=== PATIENT | female | born 1965 | race Caucasian/White ===

== ENCOUNTER 2024-01-29 19:18 | Inpatient (IN) ==
[2024-01-29] MEDS: SODIUM CHLORIDE 0.9% 1,000 ML IV ONE (19:52)
[2024-01-29 20:11] LABS: Basophils # (auto) 0.04 K/uL (0.00-0.20); Basophils % (auto) 0.3 %; Eosinophils # (auto) 0.04 K/uL (0.00-0.50); Eosinophils % (auto) 0.3 %; Hematocrit (blood only) 38.4 % (37.0-47.0); Hemoglobin 11.8 g/dl (12.0-16.0); Immature Granulocytes # (auto) 0.05 K/uL (0.01-0.20); Immature Granulocytes % (auto) 0.4 %; Lymphocytes # (auto) 2.09 K/uL (1.20-3.40); Lymphocytes % (auto) 15.5 %; Mean Corpuscular Hemoglobin 21.7 pg (25.0-34.0); Mean Corpuscular Hgb Conc 30.7 g/dL (32.0-36.0); Mean Corpuscular Volume 70.7 fL (80.0-100.0); Monocytes # (auto) 1.13 K/uL (0.11-0.59); Monocytes % (auto) 8.4 %; Neutrophils % (auto) 75.1 %; Platelet Count 589 K/uL (130-400); RDW Coefficient of Variation 15.3 % (11.5-14.5); Red Blood Count 5.43 M/uL (4.20-5.40); White Blood Count 13.45 K/ul (4.8-10.8)
[2024-01-29 20:16] LABS: Appearance Urine Turbid (Clear); Bacteria Urine Automated None Seen (None Seen); Bilirubin Urine 1+ (Negative); Blood Urine Negative (Negative); Calcium Oxalate Crystals Urine Present (None Prsent); Color Urine Dark Yellow; Glucose Urine UA Negative (Negative); Ketones Urine 2+ (Negative); Leukocyte Esterase Urine 1+ (Negative); Nitrite Urine Negative (Negative); Protein Urine 2+ (Negative); RBC Urine Automated >20 /hpf (0-2); Specific Gravity Urine 1.038 (1.000-1.030); Urobilinogen Urine Negative (Negative); WBC Urine Automated 0-5 /hpf (0-5)
[2024-01-29 20:23] LABS: Pregnancy Test, Serum Negative (Negative)
[2024-01-29 20:27] LABS: Albumin Level 4.1 gm/dl (3.4-5.0); Bilirubin,Total 0.5 mg/dl (0.2-1.0); Calcium 9.5 mg/dl (8.6-10.3); Creatinine Clr Calc Pharmacy 95.4 ml/min; Est GFR (African American) 118.4 ml/min; Est GFR (Non-African American) 102.2 ml/min; Potassium 3.1 mmol/L (3.5-5.1); Total Protein 8.1 gm/dl (6.0-8.3)
[2024-01-29 20:34] LABS: Magnesium 1.9 mg/dl (1.7-2.4)
--- NOTE | 2024-01-29 20:36 | Emergency Department Note ---
Impression & Plan Mass of uterus, Abdominal pain, Bilateral pleural effusion, Leukocytosis, Acute hypokalemia ED Provider Note HISTORY OF PRESENT ILLNESS: Patient is a 58-year-old female presenting with right lower quadrant abdominal pain. Patient reports that she has been having pain in the right lower quadrant that radiates into her right low back on and off for the last few weeks. States the pain occurs almost daily and occurs multiple times a day. She went to urgent care today because she "thought I should get it checked out finally." At urgent care she had a chest x-ray because "the lady heard something on my lung exam," and the chest x-ray showed "fluid on my lungs." She denies any history of abdominal surgeries. Denies any diarrhea. She reports nausea and a few episodes of vomiting intermittently over the last few weeks. She denies any DVT or PE history. Denies any history of cardiac stents. Denies any recent fevers. Denies any dysuria or hematuria. ROS: as above PHYSICAL EXAM: Constitutional: Patient appears in no acute distress. HENT: Head: Normocephalic and atraumatic. Eyes: EOMI, PERRL Mouth/Throat: Mucous membranes moist. Neck: Trachea midline. Neck supple. Cardiovascular: Tachycardic with regular rhythm. No murmurs, rubs or gallops. Intact distal pulses. Pulmonary/Chest: Conversationally dyspneic. Decreased breath sounds in the right lower lung. Abdominal: Abdomen soft, no rebound or guarding. RLQ TTP Musculoskeletal: No edema, tenderness or deformity noted. Skin: Warm and dry. No rash, erythema, pallor or cyanosis Psychiatric: Appropriate mood and affect for situation. Neurological: Alert and keenly responsive. CN II-XII grossly intact, moving all extremities equally and fully. MDM: - Vitals signs showed tachycardia - History obtained via patient. History as above. - Chronic conditions affecting care: None - Differential diagnoses include, but are not limited to: appendicitis; cholecystitis; small bowel obstruction; pneumonia - Order placed for continuous cardiac monitoring. At this time, monitor showed rate of 115 bpm with normal sinus rhythm, per my interpretation. - External medical records reviewed. - EKG interpreted by myself showed normal sinus rhythm. Rate tachycardic at 125 bpm. QT 312. No acute ischemic changes - Laboratory workup interpreted by myself showed leukocytosis (WBC 13.45); hypokalemia (K 3.1); normal lactate; elevated anion gap (14); normal troponin; elevated procalcitonin (8.63); negative hCG; normal lipase - UA negative for infection - CXR showed large right pleural effusion, per my interpretation. - CTA chest negative for PE, but noted to have a large right and moderate left pleural effusions. - CT abdomen/pelvis with IV contrast showed a heterogeneous 21.9 x 16.6 x 18.3 cm mass in the lower abdomen that extends from the uterus consistent with malignancy. Noted to have mild free fluid in the abdomen and pelvis. Noted to have nodularity of the omentum concerning for metastatic disease. - Patient given 1L NS in ER. - Discussed results with patient. She is persistently tachycardic in the emergency department and still conversationally dyspneic. Do think she would benefit from having the pleural effusions drained and cytology sent. Patient was agreeable to admission here. She will need follow-up with gynecology in the outpatient setting. - Discussion was had with field nurse case manager about patient's case and need for admission - Hospitalist, Dr. Lewis, consulted for admission - [facility] ASSESSMENT AND PLAN: Diagnosis: abdominal pain; acute hypokalemia; leukocytosis; bilateral pleural effusions; uterine mass Plan: admit Past Med/Surg History Problem List (Updated 01/30/24 @ 00:42 by Roberta Wolfe MD) Acute hypokalemia (Acute) Leukocytosis (Acute) Bilateral pleural effusion (Acute) Abdominal pain (Acute) Mass of uterus (Acute) Strep pharyngitis (Acute) Social History Smoking Status: Never smoker Preferred Language: Russian Feels Safe at Home: Yes Allergies Allergies Allergy/AdvReac Type Severity Reaction Status Date / Time No Known Allergies Allergy Unverified 01/29/24 21:05 Home Meds Home Medications Medication Instructions Recorded Confirmed Echinacea purpurea extract 125 mg 0 mg PO DAILY 01/29/24 01/29/24 tablet (echinacea) ascorbic acid (vitamin C) 1,000 mg 1 g PO DAILY 01/29/24 01/29/24 tablet (Vitamin C) cholecalciferol (vitamin D3) 25 25 mcg PO DAILY 01/29/24 01/29/24 mcg (1,000 unit) tablet (Vitamin D3) elderberry fruit 350 mg capsule 0 mg PO DAILY 01/29/24 01/29/24 omega 1-xhm-qpe-fish oil 1,000 mg 1 cap PO DAILY 01/29/24 01/29/24 (120 mg-180 mg) capsule (Fish Oil) Results & Data (ED) Vital Signs Vital Signs - 24 hr 01/29/24 19:30 01/29/24 20:17 01/29/24 21:31 Temperature 36.7 C Temperature Source Temporal Artery Scan Pulse Rate 123 H 107 H Pulse Rate [Finger] 115 H Pulse Rate from SpO2 Sensor Respiratory Rate 20 18 Respiratory Effort / Characteristics Non-Labored Spontaneous Respiratory Depth Normal Respiratory Pattern Regular Blood Pressure 151/85 H Blood Pressure [Right Arm] 127/91 Blood Pressure Mean 107 Blood Pressure Mean [Right Arm] 103 Blood Pressure Position [Right Arm] Semi-fowlers Pulse Oximetry 95 96 Oxygen Delivery Method Room Air Room Air Sepsis Recent Fever Within 48 Hours No Sepsis New/Unexplained Change in Mental Status No Sepsis Action Taken by Nursing No Action Required 01/29/24 21:33 01/29/24 22:00 01/29/24 22:27 Temperature Temperature Source Pulse Rate 108 H 109 H Pulse Rate [Finger] Pulse Rate from SpO2 Sensor 108 H 112 H Respiratory Rate 17 21 Respiratory Effort / Characteristics Respiratory Depth Respiratory Pattern Blood Pressure 136/86 Blood Pressure [Right Arm] Blood Pressure Mean 97 Blood Pressure Mean [Right Arm] Blood Pressure Position [Right Arm] Pulse Oximetry 96 96 Oxygen Delivery Method Room Air Room Air Sepsis Recent Fever Within 48 Hours Sepsis New/Unexplained Change in Mental Status Sepsis Action Taken by Nursing 01/29/24 22:30 01/29/24 22:30 01/29/24 22:33 Temperature Temperature Source Pulse Rate 107 H Pulse Rate [Finger] Pulse Rate from SpO2 Sensor 108 H Respiratory Rate Respiratory Effort / Characteristics Respiratory Depth Respiratory Pattern Blood Pressure 123/77 123/77 Blood Pressure [Right Arm] Blood Pressure Mean 96 96 Blood Pressure Mean [Right Arm] Blood Pressure Position [Right Arm] Pulse Oximetry 95 Oxygen Delivery Method Room Air Sepsis Recent Fever Within 48 Hours Sepsis New/Unexplained Change in Mental Status Sepsis Action Taken by Nursing 01/29/24 23:30 01/29/24 23:33 Temperature Temperature Source Pulse Rate 107 H Pulse Rate [Finger] Pulse Rate from SpO2 Sensor 107 H Respiratory Rate 25 H Respiratory Effort / Characteristics Respiratory Depth Respiratory Pattern Blood Pressure 132/78 Blood Pressure [Right Arm] Blood Pressure Mean 91 Blood Pressure Mean [Right Arm] Blood Pressure Position [Right Arm] Pulse Oximetry 95 Oxygen Delivery Method Room Air Sepsis Recent Fever Within 48 Hours Sepsis New/Unexplained Change in Mental Status Sepsis Action Taken by Nursing Laboratory Data 01/29/24 19:49 01/29/24 19:49 Lab Results 01/29/24 01/29/24 01/29/24 Range/Units 19:38 19:49 20:30 WBC 13.45 H (4.8-10.8) K/ul RBC 5.43 H (4.20-5.40) M/uL Hgb 11.8 L (12.0-16.0) g/dl Hct 38.4 (37.0-47.0) % MCV 70.7 L (80.0-100.0) fL MCH 21.7 L (25.0-34.0) pg MCHC 30.7 L (32.0-36.0) g/dL RDW Std Deviation 38.0 (36.4-46.3) fL RDW Coeff of Ben 15.3 H (11.5-14.5) % Plt Count 589 H (130-400) K/uL MPV 9.0 L (9.4-12.4) fL Immature Gran % (Auto) 0.4 % Neut % (Auto) 75.1 % Lymph % (Auto) 15.5 % [place] % (Auto) 8.4 % Eos % (Auto) 0.3 % Baso % (Auto) 0.3 % Neut # (Auto) 10.10 H (1.40-6.50) K/uL Lymph # (Auto) 2.09 (1.20-3.40) K/uL [place] # (Auto) 1.13 H (0.11-0.59) K/uL Eos # (Auto) 0.04 (0.00-0.50) K/uL Baso # (Auto) 0.04 (0.00-0.20) K/uL Immature Gran # (Auto) 0.05 (0.01-0.20) K/uL Sodium 137 (136-145) mmol/L Potassium 3.1 L (3.5-5.1) mmol/L Chloride 98 (98-107) mmol/L Carbon Dioxide 25 (21-32) mmol/L Anion Gap 14 H (3-11) BUN 8 (6-23) mg/dl Creatinine 0.57 L (0.6-1.2) mg/dl Est Cr Clr Drug Dosing 95.4 ml/min Est GFR ( Amer) 118.4 ml/min Est GFR (Non-Af Amer) 102.2 ml/min BUN/Creatinine Ratio 14.0 (10-20) Glucose 120 H (70-99(Fasting)) mg/dl Lactate 1.4 (0.4-2.0) mmol/L Calcium 9.5 (8.6-10.3) mg/dl Magnesium 1.9 (1.7-2.4) mg/dl Total Bilirubin 0.5 (0.2-1.0) mg/dl AST 14 (13-39) U/L ALT 7 (7-52) U/L Alkaline Phosphatase 66 (34-104) U/L Troponin I High Sens 4.1 (0-14) pg/ml B-Natriuretic Peptide 18 (0-100) pg/ml Total Protein 8.1 (6.0-8.3) gm/dl Albumin 4.1 (3.4-5.0) gm/dl Globulin 4.0 (2.5-4.0) gm/dl Albumin/Globulin Ratio 1.0 (0.9-2) Lipase 32 (11-82) U/L Procalcitonin 8.63 H (0-0.5) ng/ml HCG, Qual Negative (Negative) Urine Color Dark Yellow Urine Appearance Turbid A (Clear) Urine pH 6.0 (4.5-7.5) Ur Specific [place] 1.038 H (1.000-1.030) Urine Protein 2+ H (Negative) Urine Glucose (UA) Negative (Negative) Urine Ketones 2+ H (Negative) Urine Blood Negative (Negative) Urine Nitrite Negative (Negative) Urine Bilirubin 1+ H (Negative) Urine Urobilinogen Negative (Negative) Ur Leukocyte Esterase 1+ H (Negative) Urine WBC (Auto) 0-5 (0-5) /hpf Urine RBC (Auto) >20 H (0-2) /hpf U Hyaline Cast (Auto) 3-5 H (0-2) /lpf U Epithel Cells (Auto) 6-10 H (0-2) /hpf Urine Bacteria (Auto) None Seen (None Seen) Calcium Oxalate Crystal Present A (None Prsent) Administered Medications Discontinued Medications Sodium Chloride (Nss) 1,000 mls @ 999 mls/hr IV .Q1H1M ONE Stop: 01/29/24 20:36 Last Infusion: 01/29/24 21:18 Dose: Infused Documented By: Admin: 01/29/24 19:52 Dose: 999 mls/hr Documented By: DEEPTI Ioversol (Optiray 320 125ml) 120 ml IV ONCE ONE Stop: 01/29/24 21:04 Last Admin: 01/29/24 21:04 Dose: 120 ml Documented By: EDK Imaging Data Radiologist's Impression: Abdomen/Pelvis CT 01/29/24 19:36 Exam(s): CT ABDOMEN + PELVIS With Contrast IV Amt: OPTIRAY 320 120ML EXAM: CT Abdomen and Pelvis With Intravenous Contrast CLINICAL HISTORY: Right lower quadrant Pain. TECHNIQUE: Axial computed tomography images of the abdomen and pelvis with intravenous contrast. CTDI is 24.28 mGy and DLP is 662.76 mGy-cm. Automated exposure control was utilized for the study. A dose lowering technique was utilized adhering to the principles of ALARA. CONTRAST: Patient received OPTIRAY 320 120ML of IV contrast COMPARISON: No relevant prior studies available. FINDINGS: Lung bases: See below. Pleural space: Moderate right and small left pleural effusions with adjacent atelectasis. ABDOMEN: Liver: Unremarkable. No mass. Gallbladder and bile ducts: Unremarkable. No calcified stones. No ductal dilation. Pancreas: Unremarkable. No mass. No ductal dilation. Spleen: Unremarkable. No splenomegaly. Adrenals: Unremarkable. No mass. Kidneys and ureters: Unremarkable. No solid mass. No hydronephrosis. Stomach and bowel: Unremarkable. No obstruction. No mucosal thickening. PELVIS: Appendix: No findings to suggest acute appendicitis. Bladder: Unremarkable. No mass. Reproductive: There is a heterogeneous 21.9 x 16.6 x 18.3 cm mass in the lower abdomen that appears to extend from the uterus. ABDOMEN and PELVIS: Intraperitoneal space: Mild free fluid in the abdomen and pelvis. Nodularity of the omentum is concerning for metastatic disease. No free air. Bones/joints: There are degenerative changes of the spine. No acute fracture. No dislocation. Soft tissues: Unremarkable. Vasculature: Unremarkable. No abdominal aortic aneurysm. Lymph nodes: Unremarkable. No enlarged lymph nodes. IMPRESSION: 1. There is a heterogeneous 21.9 x 16.6 x 18.3 cm mass in the lower abdomen that appears to extend from the uterus. This is consistent with malignancy. 2. Mild free fluid in the abdomen and pelvis. 3. Nodularity of the omentum is concerning for metastatic disease. Electronically signed by: Karissa Yuen MD 01/29/24 23:16 PM Chest CTA 01/29/24 20:31 Exam(s): CTA CHEST IV Amt: OPTIRAY 320 120ML EXAM: CT Angiography Chest With Intravenous Contrast CLINICAL HISTORY: Pulmonary embolus. TECHNIQUE: Axial computed tomographic angiography images of the chest with intravenous contrast. MIPS images were created and reviewed. CTDI is 24. 4 mGy and DLP is 1190.55 mGy-cm. Automated exposure control was utilized for the study. A dose lowering technique was utilized adhering to the principles of ALARA. MIP reconstructed images were created and reviewed. COMPARISON: No relevant prior studies available. FINDINGS: Pulmonary arteries: Unremarkable. No pulmonary embolus. Aorta: No acute findings. No thoracic aortic aneurysm. Lungs: Unremarkable. No mass. No consolidation. Pleural space: Large right and moderate left pleural effusions. No pneumothorax. Heart: Unremarkable. No cardiomegaly. No significant pericardial effusion. No evidence of RV dysfunction. Bones/joints: There are degenerative changes of the spine. No acute fracture. No dislocation. Soft tissues: Unremarkable. Lymph nodes: Unremarkable. No enlarged lymph nodes. IMPRESSION: 1. No pulmonary embolus. 2. Large right and moderate left pleural effusions. Electronically signed by: Karissa Yuen MD 01/29/24 23:17 PM Discharge Plan Visit Data Chief Complaint: Referred by Doctor Stated Complaint: FLUID IN LUNGS,LOWER ABD PAIN - REF BY URGENT CARE ED Provider: Roberta Wolfe Discharge Problem: Mass of uterus, Abdominal pain, Bilateral pleural effusion, Leukocytosis, Acute hypokalemia Forms Stand Alone Forms: [employer] Prescriptions Prescriptions: No Action ascorbic acid (vitamin C) [Vitamin C] 1,000 mg Tablet 1 g PO DAILY cholecalciferol (vitamin D3) [Vitamin D3] 25 mcg (1,000 unit) Tablet 25 mcg PO DAILY omega 6-lmk-zgc-fish oil [Fish Oil] 1,000 mg (120 mg-180 mg) Capsule 1 cap PO DAILY echinacea 125 mg Tablet 0 mg PO DAILY Rx Instructions: administer with meals UNKNOWN STRENGTH elderberry fruit 350 mg Capsule 0 mg PO DAILY Rx Instructions: UNKNOWN STRENGTH Referrals Referrals: Refugio Chadwick [Outside Practitioners] -
[2024-01-29 20:42] LABS: Troponin I High Sensitivity 4.1 pg/ml (0-14)
[2024-01-29] MEDS: OPTIRAY 320 125ml IV ONE (21:04)
--- NOTE | 2024-01-29 23:17 | CT Scan Report ---
Exam(s): CT ABDOMEN + PELVIS With Contrast IV Amt: OPTIRAY 320 120ML EXAM: CT Abdomen and Pelvis With Intravenous Contrast CLINICAL HISTORY: Right lower quadrant Pain. TECHNIQUE: Axial computed tomography images of the abdomen and pelvis with intravenous contrast. CTDI is 24.28 mGy and DLP is 662.76 mGy-cm. Automated exposure control was utilized for the study. A dose lowering technique was utilized adhering to the principles of ALARA. CONTRAST: Patient received OPTIRAY 320 120ML of IV contrast COMPARISON: No relevant prior studies available. FINDINGS: Lung bases: See below. Pleural space: Moderate right and small left pleural effusions with adjacent atelectasis. ABDOMEN: Liver: Unremarkable. No mass. Gallbladder and bile ducts: Unremarkable. No calcified stones. No ductal dilation. Pancreas: Unremarkable. No mass. No ductal dilation. Spleen: Unremarkable. No splenomegaly. Adrenals: Unremarkable. No mass. Kidneys and ureters: Unremarkable. No solid mass. No hydronephrosis. Stomach and bowel: Unremarkable. No obstruction. No mucosal thickening. PELVIS: Appendix: No findings to suggest acute appendicitis. Bladder: Unremarkable. No mass. Reproductive: There is a heterogeneous 21.9 x 16.6 x 18.3 cm mass in the lower abdomen that appears to extend from the uterus. ABDOMEN and PELVIS: Intraperitoneal space: Mild free fluid in the abdomen and pelvis. Nodularity of the omentum is concerning for metastatic disease. No free air. Bones/joints: There are degenerative changes of the spine. No acute fracture. No dislocation. Soft tissues: Unremarkable. Vasculature: Unremarkable. No abdominal aortic aneurysm. Lymph nodes: Unremarkable. No enlarged lymph nodes. IMPRESSION: 1. There is a heterogeneous 21.9 x 16.6 x 18.3 cm mass in the lower abdomen that appears to extend from the uterus. This is consistent with malignancy. 2. Mild free fluid in the abdomen and pelvis. 3. Nodularity of the omentum is concerning for metastatic disease. Electronically signed by: Karissa Yuen MD 01/29/24 23:16 PM
--- NOTE | 2024-01-29 23:18 | CT Scan Report ---
Exam(s): CTA CHEST IV Amt: OPTIRAY 320 120ML EXAM: CT Angiography Chest With Intravenous Contrast CLINICAL HISTORY: Pulmonary embolus. TECHNIQUE: Axial computed tomographic angiography images of the chest with intravenous contrast. MIPS images were created and reviewed. CTDI is 24. 4 mGy and DLP is 1190.55 mGy-cm. Automated exposure control was utilized for the study. A dose lowering technique was utilized adhering to the principles of ALARA. MIP reconstructed images were created and reviewed. COMPARISON: No relevant prior studies available. FINDINGS: Pulmonary arteries: Unremarkable. No pulmonary embolus. Aorta: No acute findings. No thoracic aortic aneurysm. Lungs: Unremarkable. No mass. No consolidation. Pleural space: Large right and moderate left pleural effusions. No pneumothorax. Heart: Unremarkable. No cardiomegaly. No significant pericardial effusion. No evidence of RV dysfunction. Bones/joints: There are degenerative changes of the spine. No acute fracture. No dislocation. Soft tissues: Unremarkable. Lymph nodes: Unremarkable. No enlarged lymph nodes. IMPRESSION: 1. No pulmonary embolus. 2. Large right and moderate left pleural effusions. Electronically signed by: Karissa Yuen MD 01/29/24 23:17 PM
--- NOTE | 2024-01-30 01:17 | History & Physical Report ---
Date of Service January 30, 2024 Assessment & Plan (1) Bilateral pleural effusion: Plan: 58-year-old female with no significant past medical history went to urgent care because of on and off shortness of breath and on and off abdominal pain and imaging studies showed pleural effusion and was sent here. Patient states for several weeks she is getting on and off shortness of breath. And also on and off right-sided abdominal pain mild to moderate in severity. She states poor appetite. Lost about 10 pounds in last 2 weeks. Denies any fevers. No cough. No headache. No dizziness. No blurred vision. No runny nose or sore throat. No difficulty swallowing. No nausea. Normal bowel and bladder movements. Ambulating okay. Hemodynamics are okay. Patient states her family doctor retired and currently she uses [facility]. bilateral pleural effusions heterogeneous 21 x 16 x 18 cm mass in the lower abdomen , appears to extend from uterus. Nodularity of the omentum concerning for metastatic disease on the CT scan we will consult pulmonary for possible thoracocentesis will consult [facility]ER for further recommendations hypokalemia we will replace tachycardia CTA chest no PE will monitor possible UTI empiric Rocephin will follow cultures DVT prophylaxis SCDs disposition telemetry full code. History of Present Illness Chief Complaint: Pleural effusions and abdominal mass Primary Care Provider: NO PCP 58-year-old female with no significant past medical history went to urgent care because of on and off shortness of breath and on and off abdominal pain and imaging studies showed pleural effusion and was sent here. Patient states for several weeks she is getting on and off shortness of breath. And also on and off right-sided abdominal pain mild to moderate in severity. She states poor appetite. Lost about 10 pounds in last 2 weeks. Denies any fevers. No cough. No headache. No dizziness. No blurred vision. No runny nose or sore throat. No difficulty swallowing. No nausea. Normal bowel and bladder movements. Ambulating okay. Hemodynamics are okay. Patient states her family doctor retired and currently she uses [facility]. Past medical history. none. Past surgical history. [place] tooth extraction. Social history. No smoking. No alcohol. Family history. Father had lung cancer and he was smoker. Allergies Allergy/AdvReac Type Severity Reaction Status Date / Time No Known Allergies Allergy Unverified 01/29/24 21:05 Home Medications Medication Instructions Recorded Confirmed Type Echinacea purpurea extract 125 mg 0 mg PO DAILY 01/29/24 01/29/24 History tablet (echinacea) ascorbic acid (vitamin C) 1,000 mg 1 g PO DAILY 01/29/24 01/29/24 History tablet (Vitamin C) cholecalciferol (vitamin D3) 25 25 mcg PO DAILY 01/29/24 01/29/24 History mcg (1,000 unit) tablet (Vitamin D3) elderberry fruit 350 mg capsule 0 mg PO DAILY 01/29/24 01/29/24 History omega 3-gbp-nfb-fish oil 1,000 mg 1 cap PO DAILY 01/29/24 01/29/24 History (120 mg-180 mg) capsule (Fish Oil) Past Med/Surg History Problem List (Updated 01/30/24 @ 00:42 by Roberta Wolfe MD) Acute hypokalemia (Acute) Leukocytosis (Acute) Bilateral pleural effusion (Acute) Abdominal pain (Acute) Mass of uterus (Acute) Strep pharyngitis (Acute) Social History Smoking Status: Never smoker Hx Alcohol Use: No Hx Substance Use: No Preferred Language: [place] African Communication Ability: Effective 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 ENT- oropharynx clear Neck- supple, no JVD. Lungs- clear to auscultation no wheezing. bibasilar crackles. Heart- regular rhythm; no murmur, no gallop. Abdomen- normal bowel sounds, soft, diffuse tenderness, mild guarding present Extremities- no pretibial edema, no erythema seen. Neuro- alert, oriented PERRL, EOMI; no facial palsy; no dysarthria; obeys simple commands Results & Data Results & Data Vital Signs (Past 12 Hours) Vital Signs Temp Pulse Pulse Resp BP BP Pulse Ox 01/29/24 23:33 107 H 25 H 95 01/29/24 23:30 132/78 07/07/24 22:33 107 H 95 01/29/24 22:30 123/77 01/29/24 22:30 123/77 01/29/24 22:27 109 H 21 96 01/29/24 22:00 136/86 01/29/24 21:33 108 H 17 96 01/29/24 21:31 107 H 01/29/24 20:17 115 H 18 127/91 96 01/29/24 19:30 36.7 C 123 H 20 151/85 H 95 O2 Del Method 01/29/24 23:33 Room Air 01/29/24 23:30 01/29/24 22:33 Room Air 01/29/24 22:30 01/29/24 22:30 01/29/24 22:27 Room Air 01/29/24 22:00 01/29/24 21:33 Room Air 01/29/24 21:31 01/29/24 20:17 Room Air 01/29/24 19:30 Room Air Diagnostic Findings Laboratory Results WBC 13.45 K/ul (4.8-10.8) H 01/29/24 19:49 RBC 5.43 M/uL (4.20-5.40) H 01/29/24 19:49 Hgb 11.8 g/dl (12.0-16.0) L 01/29/24 19:49 Hct 38.4 % (37.0-47.0) 01/29/24 19:49 MCV 70.7 fL (80.0-100.0) L 01/29/24 19:49 MCH 21.7 pg (25.0-34.0) L 01/29/24 19:49 MCHC 30.7 g/dL (32.0-36.0) L 01/29/24 19:49 RDW Std Deviation 38.0 fL (36.4-46.3) 01/29/24 19:49 RDW Coeff of Ben 15.3 % (11.5-14.5) H 01/29/24 19:49 Plt Count 589 K/uL (130-400) H 01/29/24 19:49 MPV 9.0 fL (9.4-12.4) L 01/29/24 19:49 Immature Gran % (Auto) 0.4 % 01/29/24 19:49 Neut % (Auto) 75.1 % 01/29/24 19:49 Lymph % (Auto) 15.5 % 01/29/24 19:49 Martin % (Auto) 8.4 % 01/29/24 19:49 Eos % (Auto) 0.3 % 01/29/24 19:49 Baso % (Auto) 0.3 % 01/29/24 19:49 Neut # (Auto) 10.10 K/uL (1.40-6.50) H 01/29/24 19:49 Lymph # (Auto) 2.09 K/uL (1.20-3.40) 01/29/24 19:49 Martin # (Auto) 1.13 K/uL (0.11-0.59) H 01/29/24 19:49 Eos # (Auto) 0.04 K/uL (0.00-0.50) 01/29/24 19:49 Baso # (Auto) 0.04 K/uL (0.00-0.20) 01/29/24 19:49 Immature Gran # (Auto) 0.05 K/uL (0.01-0.20) 01/29/24 19:49 Sodium 137 mmol/L (136-145) 01/29/24 19:49 Potassium 3.1 mmol/L (3.5-5.1) L 01/29/24 19:49 Chloride 98 mmol/L (98-107) 01/29/24 19:49 Carbon Dioxide 25 mmol/L (21-32) 01/29/24 19:49 Anion Gap 14 (3-11) H 01/29/24 19:49 BUN 8 mg/dl (6-23) 01/29/24 19:49 Creatinine 0.57 mg/dl (0.6-1.2) L 01/29/24 19:49 Est Cr Clr Drug Dosing 95.4 ml/min 01/29/24 19:49 Est GFR ( Amer) 118.4 ml/min 01/29/24 19:49 Est GFR (Non-Af Amer) 102.2 ml/min 01/29/24 19:49 BUN/Creatinine Ratio 14.0 (10-20) 01/29/24 19:49 Glucose 120 mg/dl (70-99(Fasting)) H 01/29/24 19:49 Lactate 1.4 mmol/L (0.4-2.0) 01/29/24 20:30 Calcium 9.5 mg/dl (8.6-10.3) 01/29/24 19:49 Magnesium 1.9 mg/dl (1.7-2.4) 01/29/24 19:49 Total Bilirubin 0.5 mg/dl (0.2-1.0) 01/29/24 19:49 AST 14 U/L (13-39) 01/29/24 19:49 ALT 7 U/L (7-52) 01/29/24 19:49 Alkaline Phosphatase 66 U/L (34-104) 01/29/24 19:49 Troponin I High Sens 4.1 pg/ml (0-14) 01/29/24 19:49 B-Natriuretic Peptide 18 pg/ml (0-100) 01/29/24 20:30 Total Protein 8.1 gm/dl (6.0-8.3) 01/29/24 19:49 Albumin 4.1 gm/dl (3.4-5.0) 01/29/24 19:49 Globulin 4.0 gm/dl (2.5-4.0) 01/29/24 19:49 Albumin/Globulin Ratio 1.0 (0.9-2) 01/29/24 19:49 Lipase 32 U/L (11-82) 01/29/24 19:49 Procalcitonin 8.63 ng/ml (0-0.5) H 01/29/24 19:49 HCG, Qual Negative (Negative) 01/29/24 19:49 Urine Color Dark Yellow 01/29/24 19:38 Urine Appearance Turbid (Clear) A 01/29/24 19:38 Urine pH 6.0 (4.5-7.5) 01/29/24 19:38 Ur Specific [place] 1.038 (1.000-1.030) H 01/29/24 19:38 Urine Protein 2+ (Negative) H 01/29/24 19:38 Urine Glucose (UA) Negative (Negative) 01/29/24 19:38 Urine Ketones 2+ (Negative) H 01/29/24 19:38 Urine Blood Negative (Negative) 01/29/24 19:38 Urine Nitrite Negative (Negative) 01/29/24 19:38 Urine Bilirubin 1+ (Negative) H 01/29/24 19:38 Urine Urobilinogen Negative (Negative) 01/29/24 19:38 Ur Leukocyte Esterase 1+ (Negative) H 01/29/24 19:38 Urine WBC (Auto) 0-5 /hpf (0-5) 01/29/24 19:38 Urine RBC (Auto) >20 /hpf (0-2) H 01/29/24 19:38 U Hyaline Cast (Auto) 3-5 /lpf (0-2) H 01/29/24 19:38 U Epithel Cells (Auto) 6-10 /hpf (0-2) H 01/29/24 19:38 Urine Bacteria (Auto) None Seen (None Seen) 01/29/24 19:38 Calcium Oxalate Crystal Present (None Prsent) A 01/29/24 19:38 Impressions Abdomen/Pelvis CT 01/29/24 19:36 Exam(s): CT ABDOMEN + PELVIS With Contrast IV Amt: OPTIRAY 320 120ML EXAM: CT Abdomen and Pelvis With Intravenous Contrast CLINICAL HISTORY: Right lower quadrant Pain. TECHNIQUE: Axial computed tomography images of the abdomen and pelvis with intravenous contrast. CTDI is 24.28 mGy and DLP is 662.76 mGy-cm. Automated exposure control was utilized for the study. A dose lowering technique was utilized adhering to the principles of ALARA. CONTRAST: Patient received OPTIRAY 320 120ML of IV contrast COMPARISON: No relevant prior studies available. FINDINGS: Lung bases: See below. Pleural space: Moderate right and small left pleural effusions with adjacent atelectasis. ABDOMEN: Liver: Unremarkable. No mass. Gallbladder and bile ducts: Unremarkable. No calcified stones. No ductal dilation. Pancreas: Unremarkable. No mass. No ductal dilation. Spleen: Unremarkable. No splenomegaly. Adrenals: Unremarkable. No mass. Kidneys and ureters: Unremarkable. No solid mass. No hydronephrosis. Stomach and bowel: Unremarkable. No obstruction. No mucosal thickening. PELVIS: Appendix: No findings to suggest acute appendicitis. Bladder: Unremarkable. No mass. Reproductive: There is a heterogeneous 21.9 x 16.6 x 18.3 cm mass in the lower abdomen that appears to extend from the uterus. ABDOMEN and PELVIS: Intraperitoneal space: Mild free fluid in the abdomen and pelvis. Nodularity of the omentum is concerning for metastatic disease. No free air. Bones/joints: There are degenerative changes of the spine. No acute fracture. No dislocation. Soft tissues: Unremarkable. Vasculature: Unremarkable. No abdominal aortic aneurysm. Lymph nodes: Unremarkable. No enlarged lymph nodes. IMPRESSION: 1. There is a heterogeneous 21.9 x 16.6 x 18.3 cm mass in the lower abdomen that appears to extend from the uterus. This is consistent with malignancy. 2. Mild free fluid in the abdomen and pelvis. 3. Nodularity of the omentum is concerning for metastatic disease. Electronically signed by: Karissa Yuen MD 01/29/24 23:16 PM Chest CTA 01/29/24 20:31 Exam(s): CTA CHEST IV Amt: OPTIRAY 320 120ML EXAM: CT Angiography Chest With Intravenous Contrast CLINICAL HISTORY: Pulmonary embolus. TECHNIQUE: Axial computed tomographic angiography images of the chest with intravenous contrast. MIPS images were created and reviewed. CTDI is 24. 4 mGy and DLP is 1190.55 mGy-cm. Automated exposure control was utilized for the study. A dose lowering technique was utilized adhering to the principles of ALARA. MIP reconstructed images were created and reviewed. COMPARISON: No relevant prior studies available. FINDINGS: Pulmonary arteries: Unremarkable. No pulmonary embolus. Aorta: No acute findings. No thoracic aortic aneurysm. Lungs: Unremarkable. No mass. No consolidation. Pleural space: Large right and moderate left pleural effusions. No pneumothorax. Heart: Unremarkable. No cardiomegaly. No significant pericardial effusion. No evidence of RV dysfunction. Bones/joints: There are degenerative changes of the spine. No acute fracture. No dislocation. Soft tissues: Unremarkable. Lymph nodes: Unremarkable. No enlarged lymph nodes. IMPRESSION: 1. No pulmonary embolus. 2. Large right and moderate left pleural effusions. Electronically signed by: Karissa Yuen MD 01/29/24 23:17 PM ECG Additional Comments: ECG. Normal sinus tachycardia to 125. No acute ST changes seen. QTc 450. Code Status & VTE Plan VTE Prophylaxis Plan VTE Prophylaxis will be ordered: Yes
[2024-01-30] MEDS ORDERED: POLYETHYLENE (MIRALAX) 17 GM PACK PO PRN (02:05)
[2024-01-30] MEDS ORDERED: NITROGLYCERIN SL 0.4 MG/TAB TAB SL PRN (02:05)
[2024-01-30] MEDS: cefTRIAXone SODIUM 2,000 MG/50 ML BAG IV SCH (03:59)
[2024-01-30] MEDS: POTASSIUM CHLORIDE CRTAB 20 MEQ TABCR PO STA (04:00)
[2024-01-30] MEDS: CHOLECALCIFEROL 25 MCG (1000 UNITS) TAB PO SCH (08:07)
[2024-01-30 08:18] LABS: Basophils # (auto) 0.02 K/uL (0.00-0.20); Basophils % (auto) 0.2 %; Eosinophils # (auto) 0.02 K/uL (0.00-0.50); Eosinophils % (auto) 0.2 %; Hematocrit (blood only) 32.1 % (37.0-47.0); Hemoglobin 9.9 g/dl (12.0-16.0); Immature Granulocytes # (auto) 0.05 K/uL (0.01-0.20); Immature Granulocytes % (auto) 0.5 %; Lymphocytes # (auto) 1.36 K/uL (1.20-3.40); Lymphocytes % (auto) 12.4 %; Mean Corpuscular Hemoglobin 21.8 pg (25.0-34.0); Mean Corpuscular Hgb Conc 30.8 g/dL (32.0-36.0); Mean Corpuscular Volume 70.5 fL (80.0-100.0); Mean Platelet Volume 9.2 fL (9.4-12.4); Monocytes # (auto) 1.07 K/uL (0.11-0.59); Monocytes % (auto) 9.8 %; Neutrophils # (auto) 8.43 K/uL (1.40-6.50); Neutrophils % (auto) 76.9 %; Platelet Count 495 K/uL (130-400); RDW Coefficient of Variation 15.3 % (11.5-14.5); RDW Standard Deviation 38.4 fL (36.4-46.3); Red Blood Count 4.55 M/uL (4.20-5.40); White Blood Count 10.95 K/ul (4.8-10.8)
--- NOTE | 2024-01-30 08:28 | XRay Report ---
XR chest 1V portable HISTORY: 58 years-old Female abnormal CXR at urgent care acute shortness of breath COMPARISON: CTA chest of same day TECHNIQUE: PA view of the chest FINDINGS: Cardiomediastinal and hilar silhouettes are within normal limits. Pulmonary vascular congestion. Laye ring right greater than left pleural effusions, moderate on the left and moderate to large on the rig ht with mild dependent bibasilar consolidation/volume loss. No pneumothorax. Bones appear grossly int act. IMPRESSION: 1. Moderate left and moderate to large right pleural effusions with mild bibasilar opacities likely r epresentative of atelectasis. 2. Pulmonary vascular congestion. ACT 112: Negative or not required by law. The above report was generated using voice recognition software. It may contain grammatical, syntax o r spelling errors. Electronically signed by: Hector Wolfe M.D. 01/30/2024 8:27 AM
[2024-01-30 08:44] LABS: BUN Creatinine Ratio 14.6 (10-20); Calcium 8.5 mg/dl (8.6-10.3); Creatinine Clr Calc Pharmacy 132.7 ml/min; Est GFR (Non-African American) 113.9 ml/min; Magnesium 1.9 mg/dl (1.7-2.4); Potassium 3.9 mmol/L (3.5-5.1)
--- NOTE | 2024-01-30 09:04 | Pulmonary Consultation ---
Date of Consultation January 30, 2024 Assessment & Plan (1) Bilateral pleural effusion: (2) Shortness of breath: Plan CTA chest 01/29/2024 personally reviewed: Bilateral pleural effusions, large on the right, moderate on the left Compressive atelectasis of the right lower lobe Atelectasis of the right middle lobe No significant mediastinal lymphadenopathy --Bilateral pleural effusion R>L BNP 18 Procalcitonin 8.63 Given abdominal mass, the probability of pleural effusion coming from ovarian source of malignancy is high This was relayed to the patient as well as patient's family. Plan: Hold anticoagulation, possible thoracentesis on the right side today Recommend diuretics to keep the patient negative balance, strict in and out Continue with antibiotics given the elevated procalcitonin Recommend 2D echo if not already done Please note the above document was generated using voice recognition software. It may contain grammatical, syntax or spelling errors.Any formal questions or concerns about the content, text or information contained within the body of this dictation should be directly addressed to the provider for clarification. History of Present Illness Attending Physician: Farzaneh Smart MD History of Present Illness 58-year-old female admitted to hospital because of shortness of breath Past medical history: Anxiety Pulmonary consulted for bilateral pleural effusion At the time of examination patient's family was in the room. She was saturating 98% on room air, heart rate was in no low 120s. She did complain of feeling heaviness within the chest but denied any significant shortness of breath No chest pain, no cough. No hemoptysis. Denies any headache or blurry vision No fever or chills No nausea or vomiting Poor appetite She has lost approximately 15 pounds in the month or so. Social history: Lifetime non-smoker No history of lung cancer in the family Allergies Allergy/AdvReac Type Severity Reaction Status Date / Time No Known Allergies Allergy Unverified 01/29/24 21:05 Home Medications Medication Instructions Recorded Confirmed Type Echinacea purpurea extract 125 mg 0 mg PO DAILY 01/29/24 01/29/24 History tablet (echinacea) ascorbic acid (vitamin C) 1,000 mg 1 g PO DAILY 01/29/24 01/29/24 History tablet (Vitamin C) cholecalciferol (vitamin D3) 25 25 mcg PO DAILY 01/29/24 01/29/24 History mcg (1,000 unit) tablet (Vitamin D3) elderberry fruit 350 mg capsule 0 mg PO DAILY 01/29/24 01/29/24 History omega 7-vnf-cfa-fish oil 1,000 mg 1 cap PO DAILY 01/29/24 01/29/24 History (120 mg-180 mg) capsule (Fish Oil) Patient History Social History Smoking Status: Never smoker Hx Alcohol Use: No Hx Substance Use: No Preferred Language: Urdu Communication Ability: Effective Support Technician Required: No Beliefs That Will Affect Care: None Current Living Situation: Spouse Other Information That Helps Us Care for You: No Feels Safe at Home: Yes Safety Concerns: Feels Safe At This Time Assistive Devices: Glasses Review of Systems 2 Review of Systems: All systems reviewed & are unremarkable except as noted in HPI & below Physical Exam 2 Physical Exam: Constitutional: No acute distress HEENT: EOMI, PERRLA Respiratory system: Decreased air entry bowel clear, no wheeze, no rhonchi, mild crackles bilateral lower lobes CVS: S1-S2 positive, no murmurs or gallops, tachycardia Abdomen: Soft, nontender, nondistended, positive bowel sounds x4 Extremities: +2 pulses bilaterally radialis/ dorsalis pedis, no cyanosis, no edema Neuro: Awake alert oriented x3 Psych: Normal mood and affect G/U: No [place] Skin: no rashes, warm and dry Lymphatic: no cervical or axillary lymphadenopathy Results & Data Results & Data Vital Signs (Past 12 Hours) Vital Signs Temp Pulse Pulse Resp BP BP Pulse Ox 01/30/24 06:41 105 H 01/30/24 06:00 107 H 17 116/72 94 01/30/24 05:54 94 01/30/24 05:49 104 H 01/30/24 05:49 01/30/24 05:49 106 H 20 145/86 H 93 01/30/24 05:00 108 H 20 145/86 H 94 01/30/24 04:00 108 H 21 145/86 H 93 01/30/24 03:00 104 H 20 121/82 94 01/30/24 02:57 107 H 01/30/24 02:37 108 H 20 121/82 96 01/30/24 02:35 37.0 C 107 H 18 121/82 94 01/29/24 23:33 107 H 25 H 95 01/29/24 23:30 132/78 01/29/24 22:33 107 H 95 01/29/24 22:30 123/77 01/29/24 22:30 123/77 01/29/24 22:27 109 H 21 96 01/29/24 22:00 136/86 01/29/24 21:33 108 H 17 96 01/29/24 21:31 107 H Pulse Ox O2 Del Method O2 Del Method 01/30/24 06:41 01/30/24 06:00 Room Air 01/30/24 05:54 Room Air 01/30/24 05:49 01/30/24 05:49 93 Room Air 01/30/24 05:49 Room Air 01/30/24 05:00 Room Air 01/30/24 04:00 Room Air 01/30/24 03:00 Room Air 01/30/24 02:57 01/30/24 02:37 Room Air 01/30/24 02:35 Room Air 01/29/24 23:33 Room Air 01/29/24 23:30 01/29/24 22:33 Room Air 01/29/24 22:30 01/29/24 22:30 01/29/24 22:27 Room Air 01/29/24 22:00 01/29/24 21:33 Room Air 01/29/24 21:31 Laboratory Results 01/30/24 07:30 01/30/24 07:30 PG Care Time/CCT Total # of Minutes Spent Total Time Spent with Patient: Total time spent is greater than 50% in coordination of care (as documented) at patient's floor/unit and/or counseling patient: [place] [address] INT INP/OBS CARE 3/75MIN Patient Type New Diagnoses Bilateral pleural effusion J90 Shortness of breath R06.02
[2024-01-30] MEDS ORDERED: LORazepam 0.5 MG in SYRINGE 0.25 ML IV PRN (10:08)
--- NOTE | 2024-01-30 12:53 | Hospitalist Progress Note ---
Date of Service January 30, 2024 Assessment & Plan (1) Bilateral pleural effusion: Plan: Ms. 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 Patient endorses right sided abdominal pain, unintentional weightloss, SOB and orthopnea. Spoke with Dr. Vasu Chairez over phone who recommends attempted transfer to tertiary care center. #bilateral pleural effusions, c/f malignant effusion #Abdominal mass c/f ovarian cancer with carcinomatosis CT ABP with heterogeneous 21 x 16 x 18 cm mass in the lower abdomen , appears to extend from uterus. Nodularity of the omentum concerning for metastatic disease on the CT scan Pulm -S/p 1.8L from right thora this am -plan for left thoracentesis tomorrow [employer] -Recommends tertiary transfer given presenting symptoms ECHO ordered #Microcytic anemia leukocytosis downtrending, thrombocytosis downtrending, anemia from 11 - 9 no source of bleed likely iso malignancy CTM, repeat CBC and anemia labs in am #hypokalemia trend BMP #Sinus tachycardia CTA chest no PE iso pleural effusions and underlying malignant process CTM on tele #possible UTI empiric Rocephin will follow cultures DVT prophylaxis SCDs disposition telemetry--contacting transfer center full code. Admission and Anticipated Discharge Date Admission Date: January 30, 2024 Subjective Admitted overnight Evaluated in ED , comfortable at bedside while sitting upright Reports discomfort attempting to lay flat Endorses anxiety and concern for thoracentesis, but did not express much regarding mass at this time at bedside, all questions answered Physical Exam Constitutional: WD/WN, vitals as above mildly anxious Respiratory: diminished bibasilar breath sounds Cardiovascular: tachycardic Results & Data Results & Data Vital Signs (Past 12 Hours) Vital Signs Temp Pulse Pulse Resp BP BP Pulse Ox 01/30/24 10:55 113 H 16 139/90 97 01/30/24 06:41 105 H 01/30/24 06:00 107 H 17 116/72 94 01/30/24 05:54 94 01/30/24 05:49 104 H 01/30/24 05:49 01/30/24 05:49 106 H 20 145/86 H 93 01/30/24 05:00 108 H 20 145/86 H 94 01/30/24 04:00 108 H 21 145/86 H 93 01/30/24 03:00 104 H 20 121/82 94 01/30/24 02:57 107 H 01/30/24 02:37 108 H 20 121/82 96 01/30/24 02:35 37.0 C 107 H 18 12182 94 Pulse Ox O2 Del Method O2 Del Method 01/30/24 10:55 Room Air 01/30/24 06:41 01/30/24 06:00 Room Air 01/30/24 05:54 Room Air 01/30/24 05:49 01/30/24 05:49 93 Room Air 01/30/24 05:49 Room Air 01/30/24 05:00 Room Air 01/30/24 04:00 Room Air 01/30/24 03:00 Room Air 01/30/24 02:57 01/30/24 02:37 Room Air 01/30/24 02:35 Room Air Laboratory Results Short CBC 01/29/24 01/30/24 Range/Units 19:49 07:30 WBC 13.45 H 10.95 H (4.8-10.8) K/ul Hgb 11.8 L 9.9 L (12.0-16.0) g/dl Hct 38.4 32.1 L (37.0-47.0) % Plt Count 589 H 495 H (130-400) K/uL BMP 01/29/24 01/30/24 19:49 07:30 Sodium 137 136 Potassium 3.1 L 3.9 D Chloride 98 103 Carbon Dioxide 25 23 BUN 8 6 Creatinine 0.57 L 0.41 L Glucose 120 H 112 H Calcium 9.5 8.5 L Liver Function 01/29/24 Range/Units 19:49 Total Bilirubin 0.5 (0.2-1.0) mg/dl AST 14 (13-39) U/L ALT 7 (7-52) U/L Alkaline Phosphatase 66 (34-104) U/L Albumin 4.1 (3.4-5.0) gm/dl Urine 01/29/24 Range/Units 19:38 Urine Color Dark Yellow Urine Appearance Turbid A (Clear) Urine pH 6.0 (4.5-7.5) Ur Specific [place] 1.038 H (1.000-1.030) Urine Protein 2+ H (Negative) Urine Glucose (UA) Negative (Negative) Medications Administered Home Medications Medication Instructions Recorded Confirmed Last Taken Echinacea purpurea extract 125 mg 0 mg PO DAILY 01/29/24 01/29/24 Unknown tablet (echinacea) ascorbic acid (vitamin C) 1,000 mg 1 g PO DAILY 01/29/24 01/29/24 Unknown tablet (Vitamin C) cholecalciferol (vitamin D3) 25 25 mcg PO DAILY 01/29/24 01/29/24 Unknown mcg (1,000 unit) tablet (Vitamin D3) elderberry fruit 350 mg capsule 0 mg PO DAILY 01/29/24 01/29/24 Unknown omega 3-fov-hva-fish oil 1,000 mg 1 cap PO DAILY 01/29/24 01/29/24 Unknown (120 mg-180 mg) capsule (Fish Oil) Active Medications Generic Name Dose Route Start Last Admin Trade Name Freq PRN Reason Stop Dose Admin Ceftriaxone Sodium 2,000 mg in 50 mls @ 100 mls/hr 01/30/24 03:00 01/30/24 04:25 Rocephin IV 02/09/24 02:59 Infused Q24H DAVID Infusion Morphine Sulfate 2 mg 01/30/24 02:05 01/30/24 15:52 Morphine Sulfate 2 Mg/Ml Carp IV 02/13/24 02:04 2 mg Q4H PRN Administration Mod-Sev Pain (Scale 4-10) Vitamin D 25 mcg 01/30/24 09:00 01/30/24 08:07 Cholecalciferol 25 Mcg (1000 Units) Tab PO 02/29/24 08:59 25 mcg DAILY DAVID Administration
[2024-01-30] MEDS: MoRPHine SULFATE 2 MG/ML CARP IV PRN (15:52)
--- NOTE | 2024-01-30 15:58 | Electrocardiogram Report ---
Test Reason : Blood Pressure : / mmHG Vent. Rate : 125 BPM Atrial Rate : 125 BPM P-R Int : 140 ms QRS Dur : 072 ms QT Int : 312 ms P-R-T Axes : 012 017 010 degrees QTc Int : 450 ms Sinus tachycardia Poor R wave progression, consider anterior MA vs. lead placement vs. LVH Abnormal ECG No previous ECGs available Confirmed by Landry Ortiz ([id number]) on 01/30/2024 3:58:37 PM Referred By: REFERRED SELF Confirmed By:Radames Ortiz
--- NOTE | 2024-01-30 15:58 | Consultation ---
Date of Consultation January 30, 2024 Assessment & Plan (1) Shortness of breath: (2) Bilateral pleural effusion: (3) Abdominal pain: (4) Mass of uterus: Plan Plan is for thoracentesis. Transfer to [facility] oncology. History of Present Illness Reason for Consultation: Abdominal pain. Bilateral pleural effusions. CT scan showing large pelvic mass. Attending Physician: Farzaneh Smart MD History of Present Illness Patient was seen at a urgent care center for 2 weeks of decreased appetite and abdominal pain and discomfort particularly on the right side. 58-year-old 3 para 3 she is in good general health. Underwent menopause at age 50. No bleeding since then. Had a physical exam 2 years ago which included a pelvic exam. She stated at this exam was normal. She complains of 2 weeks of decreased appetite increased tiredness and general malaise. She has had 1 or 2 episodes of vomiting. She had a chest x-ray done at the urgent care center which showed bilateral pleural effusions. She was then admitted to the hospital through the emergency room. Presently being scheduled for thoracentesis. CT scan of the abdomen revealed a large pelvic mass some dimensions exceeding 23 cm. And she had suspicious nodularity of the omentum. There was no excessive intra-abdominal fluid. CT scan was read as being suggestive of carcinoma. Allergies Allergy/AdvReac Type Severity Reaction Status Date / Time No Known Allergies Allergy Unverified 01/29/24 21:05 Home Medications Medication Instructions Recorded Confirmed Type Echinacea purpurea extract 125 mg 0 mg PO DAILY 01/29/24 01/29/24 History tablet (echinacea) ascorbic acid (vitamin C) 1,000 mg 1 g PO DAILY 01/29/24 01/29/24 History tablet (Vitamin C) cholecalciferol (vitamin D3) 25 25 mcg PO DAILY 01/29/24 01/29/24 History mcg (1,000 unit) tablet (Vitamin D3) elderberry fruit 350 mg capsule 0 mg PO DAILY 01/29/24 01/29/24 History omega 8-msu-saa-fish oil 1,000 mg 1 cap PO DAILY 01/29/24 01/29/24 History (120 mg-180 mg) capsule (Fish Oil) Patient History Social History Smoking Status: Never smoker Hx Alcohol Use: No Hx Substance Use: No Preferred Language: Mongolian Communication Ability: Effective Molecular Biology Scientist Required: No Beliefs That Will Affect Care: None Current Living Situation: Spouse Other Information That Helps Us Care for You: No Feels Safe at Home: Yes Safety Concerns: Feels Safe At This Time Assistive Devices: Glasses Physical Exam Physical Exam: Physical exam revealed a well-developed well-nourished 58-year-old white female alert oriented x 3 in no acute distress. Heart had a regular rhythm S1 and S2 were normal. Lungs reveal decreased breath sounds bilaterally. Trachea was midline there is no adenopathy. Heart had a regular rhythm S1 and S2 were normal. Abdomen revealed a palpable abdominal mass at the level of the umbilicus. Musculoskeletal examination revealed no calf tenderness. Results & Data Vital Signs (Past 12 Hours) Vital Signs Temp Pulse Pulse Resp BP BP Pulse Ox 01/30/24 15:31 36.9 C 118 H 18 146/87 H 96 01/30/24 12:53 36.8 C 114 H 18 124/69 96 01/30/24 12:49 01/30/24 10:55 113 H 16 139/90 97 01/30/24 06:41 105 H 01/30/24 06:00 107 H 17 116/72 94 01/30/24 05:54 94 01/30/24 05:49 104 H 01/30/24 05:49 01/30/24 05:49 106 H 20 145/86 H 93 01/30/24 05:00 108 H 20 145/86 H 94 01/30/24 04:00 108 H 21 145/86 H 93 Pulse Ox O2 Del Method O2 Del Method 01/30/24 15:31 Room Air 01/30/24 12:53 Room Air 01/30/24 12:49 Room Air 01/30/24 10:55 Room Air 01/30/24 06:41 01/30/24 06:00 Room Air 01/30/24 05:54 Room Air 01/30/24 05:49 01/30/24 05:49 93 Room Air 01/30/24 05:49 Room Air 01/30/24 05:00 Room Air 01/30/24 04:00 Room Air Diagnostic Findings Bilateral pleural effusions. CT scan of the abdomen suggestive of metastatic carcinoma.
--- NOTE | 2024-01-30 16:27 | Procedure Note ---
Procedure Note Date of Service January 30, 2024 Note Procedure: Diagnostic therapeutic ultrasound-guided catheter thoracentesis Molding Line Assistant: Dr. Debra Haji Indication: Pleural effusion Consent: Signed by patient and verified with timeout prior to procedure Anesthesia: 1% lidocaine without epinephrine local. Procedure: Consent was verified and timeout performed. Appropriate imaging studies were reviewed prior to the procedure. Patient was placed in a seated position and limited thoracic ultrasound was performed of the right chest. See separate imaging. Appropriate site above the diaphragm for thoracentesis was selected. The skin was prepped and draped in normal sterile fashion. Lidocaine was used for local analgesia. Fluid was aspirated via the finder needle. A small skin cristy was made with the scalpel and the catheter over the needle apparatus was advanced over the rib into the pleural space. Using the syringe one-way valve system, a total of 1800 mL's of serosanguineous fluid was removed. The catheter was removed and observed to be intact. A sterile dressing was applied. Post procedure chest x-ray was ordered. Fluid was sent for labs, culture and cytology. Complications: None Blood loss: None Coding CPT Codes Pulmonary/Thoracic - Pulmonary and Thoracic: 61508 Thoracentesis w imaging ([id number]) [facility] [place] Procedure Codes (Charges) Pulmonary/Thoracic Procedure 1: Pulmonary and Thoracic: 62868 Thoracentesis w imaging
--- NOTE | 2024-01-30 16:28 | Procedure Note ---
Procedure Note Date of Service January 30, 2024 Note Bedside Ultrasound: Lung: Right:-Moderate-large right-sided pleural effusion with minimal fibrin strands Left:-Small to moderate left-sided pleural effusion with atelectasis Please note the above document was generated using voice recognition software. It may contain grammatical, syntax or spelling errors.Any formal questions or concerns about the content, text or information contained within the body of this dictation should be directly addressed to the provider for clarification. Coding CPT Codes Pulmonary/Thoracic - Pulmonary and Thoracic: 11904 US, Chest, real time with imaging documentation ([id number]) [facility] [place] Procedure Codes (Charges) Pulmonary/Thoracic Procedure 1: Pulmonary and Thoracic: 95355 US, Chest, real time with imaging documentation
--- NOTE | 2024-01-30 16:56 | XRay Report ---
XR chest 1V portable HISTORY: chest tube placement COMPARISON: Chest 01/29/2024. FINDINGS: No pneumothorax. A small left pleural effusion persists. Decrease in size in the now small right pleural effusion. No evidence for right-sided chest tube. However, this could be obscured by th e overlapping cardiac monitoring leads. Bibasilar densities are nonspecific but favor atelectasis. No evidence for pulmonary edema. No midline shift. No acute fractures. The heart is normal in size. IMPRESSION: 1. Decrease in size in the now small right pleural effusion. No pneumothorax. A right-sided chest tub e is not identified. 2. A small left pleural effusion persists. ACT 112: Negative or not required by law. Electronically signed by: Sarwat James M.D. 01/30/2024 4:55 PM
[2024-01-30 18:26] LABS: Total Protein Pleural Fluid 5.1 gm/dl
[2024-01-30 18:55] LABS: Albumin Level 3.3 gm/dl (3.4-5.0); Bilirubin,Total 0.4 mg/dl (0.2-1.0); Total Protein 6.5 gm/dl (6.0-8.3)
[2024-01-30 19:07] LABS: Appearance Pleural Fluid Cloudy; Color Pleural Fluid Red; Lymphocytes, Fluid 60 %; Mono,Macrophage,Mesothelial 29 %; Neutrophils, Fluid 11 %; RBC Pleural Fluid Auto 43000 /uL; Source Pleural Fluid Right Lung; WBC Pleural Fluid Auto 4412 /uL
[2024-01-31 06:28] LABS: Hematocrit (blood only) 31.2 % (37.0-47.0); Hemoglobin 9.7 g/dl (12.0-16.0); Immature Retic Fraction 28.7 % (2.3-15.9); Mean Corpuscular Hemoglobin 21.6 pg (25.0-34.0); Mean Corpuscular Hgb Conc 31.1 g/dL (32.0-36.0); Mean Corpuscular Volume 69.5 fL (80.0-100.0); Mean Platelet Volume 9.6 fL (9.4-12.4); Platelet Count 482 K/uL (130-400); RDW Coefficient of Variation 15.6 % (11.5-14.5); RDW Standard Deviation 38.5 fL (36.4-46.3); Red Blood Count 4.49 M/uL (4.20-5.40); Reticulated Hemoglobin 20.3 pg (28.2-36.6); Reticulocyte % 1.59 % (0.50-2.00); White Blood Count 9.68 K/ul (4.8-10.8)
[2024-01-31 06:58] LABS: BUN Creatinine Ratio 13.5 (10-20); Calcium 8.6 mg/dl (8.6-10.3); Creatinine Clr Calc Pharmacy 104.6 ml/min; Est GFR (African American) 122.1 ml/min; Est GFR (Non-African American) 105.3 ml/min; Magnesium 1.8 mg/dl (1.7-2.4); Phosphorus 3.1 mg/dl (2.5-4.9); Potassium 3.7 mmol/L (3.5-5.1)
[2024-01-31 07:15] LABS: Folate (Folic Acid),Ser orPlas 6.04 ng/ml (>5.38)
[2024-01-31 07:17] LABS: Ferritin 420.9 ng/ml (8-388)
--- NOTE | 2024-01-31 07:36 | Communication Note ---
Date of Service: January 31, 2024 Spoke with transfer Center. [facility] declined to accept transfer given no confirmation of primary. Ordered further tumor markers as requested. Discuss with IR candidacy for biopsy. Fluid studies from [facility] pending
--- NOTE | 2024-01-31 07:36 | Hospitalist Progress Note ---
Date of Service January 31, 2024 Assessment & Plan (1) Bilateral pleural effusion: Plan: Ms. 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 Patient endorses right sided abdominal pain, unintentional weightloss, SOB and orthopnea. Spoke with Dr. Vasu Chairez over phone who recommends attempted transfer to tertiary care center. Spoke to [facility] who states he will not accept as transfer as "primary is not concerned" Dr Henriquez recommended CA 19-9, CEA tumor markers. Dr. Henriquez also mentioned that given the size and concern for carcinomatosis, he would likely defer to Med Onc regardless. Discussed with IR this am regarding biopsy of tissue: "this is something that IR typically will not biopsy and os handled by LOAN COORDINATOR surgery..." Patient pending consult with Med Onc today. #bilateral pleural effusions, exudative #Abdominal mass c/f ovarian cancer with carcinomatosis CT ABP with heterogeneous 21 x 16 x 18 cm mass in the lower abdomen , appears to extend from uterus. 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 discontinue abx asymptomatic DVT prophylaxis SCDs disposition telemetry full code. Admission and Anticipated Discharge Date Admission Date: January 30, 2024 Subjective NAEO Patient reports subjective improvement in breathing at rest, laying flat and on exertion She denies any chest pain or abdominal pain at this time. She is ready for her thora on the left this morning Physical Exam Constitutional: WD/WN, vitals as above Respiratory: improved aeration right lung lopez, diminished left basilar lopez Cardiovascular: tachycardic, regular Results & Data Results & Data Vital Signs (Past 12 Hours) Vital Signs Temp Pulse Pulse Resp BP Pulse Ox Pulse Ox 01/31/24 05:00 91 01/31/24 02:50 36.7 C 109 H 18 120/73 91 01/31/24 00:00 117 H 01/30/24 22:49 37.1 C 119 H 19 111/62 92 01/30/24 19:49 O2 Del Method O2 Del Method 01/31/24 05:00 Room Air 01/31/24 02:50 Room Air 01/31/24 00:00 01/30/24 22:49 Room Air 01/30/24 19:49 Room Air Laboratory Results Short CBC 01/31/24 Range/Units 05:25 WBC 9.68 (4.8-10.8) K/ul Hgb 9.7 L (12.0-16.0) g/dl Hct 31.2 L (37.0-47.0) % Plt Count 482 H (130-400) K/uL BMP 01/31/24 05:25 Sodium 137 Potassium 3.7 Chloride 102 Carbon Dioxide 26 BUN 7 Creatinine 0.52 L Glucose 120 H Calcium 8.6 Liver Function 01/30/24 Range/Units 07:30 Total Bilirubin 0.4 (0.2-1.0) mg/dl Albumin 3.3 L (3.4-5.0) gm/dl Medications Administered Home Medications Medication Instructions Recorded Confirmed Last Taken Echinacea purpurea extract 125 mg 0 mg PO DAILY 01/29/24 01/29/24 Unknown tablet (echinacea) ascorbic acid (vitamin C) 1,000 mg 1 g PO DAILY 01/29/24 01/29/24 Unknown tablet (Vitamin C) cholecalciferol (vitamin D3) 25 25 mcg PO DAILY 01/29/24 01/29/24 Unknown mcg (1,000 unit) tablet (Vitamin D3) elderberry fruit 350 mg capsule 0 mg PO DAILY 01/29/24 01/29/24 Unknown omega 1-tkk-yxv-fish oil 1,000 mg 1 cap PO DAILY 01/29/24 01/29/24 Unknown (120 mg-180 mg) capsule (Fish Oil) Active Medications Generic Name Dose Route Start Last Admin Trade Name Freq PRN Reason Stop Dose Admin Ceftriaxone Sodium 2,000 mg in 50 mls @ 100 mls/hr 01/30/24 03:00 01/31/24 05:06 Rocephin IV 02/09/24 02:59 Infused Q24H DAVID Infusion Morphine Sulfate 2 mg 01/30/24 02:05 01/31/24 08:37 Morphine Sulfate 2 Mg/Ml Carp IV 02/13/24 02:04 1 mg Q4H PRN Administration Mod-Sev Pain (Scale 4-10) Vitamin D 25 mcg 01/30/24 09:00 01/31/24 08:35 Cholecalciferol 25 Mcg (1000 Units) Tab PO 02/29/24 08:59 25 mcg DAILY DAVID Administration
--- NOTE | 2024-01-31 07:58 | Pulmonology Progress Note ---
Date of Service January 31, 2024 Assessment & Plan (1) Bilateral pleural effusion: (2) Shortness of breath: Plan CTA chest 01/29/2024 personally reviewed: Bilateral pleural effusions, large on the right, moderate on the left Compressive atelectasis of the right lower lobe Atelectasis of the right middle lobe No significant mediastinal lymphadenopathy --Bilateral pleural effusion R>L BNP 18 Procalcitonin 8.63 Given abdominal mass, the probability of pleural effusion coming from ovarian source of malignancy is high S/p right-sided thoracentesis 01/30/2024, 1800 mL serosanguineous fluid removed, exudative as per lights criteria Pleural fluid: LDH 387, protein 5.1, pH 7.44 Serum: LDH 368, protein 6.5 Plan: For thoracentesis on the left side today Patient will benefit from incentive spirometry Probability of patient getting the fluid back is high. Follow-up cytology Case was discussed with primary team at bedside Please note the above document was generated using voice recognition software. It may contain grammatical, syntax or spelling errors.Any formal questions or concerns about the content, text or information contained within the body of this dictation should be directly addressed to the provider for clarification. Admission and Anticipated Discharge Date Admission Date: January 30, 2024 Subjective Patient seen and examined at bedside. No acute distress, no adverse events overnight She says she is feeling much better after taking the fluid out from the right side Denies any cough, no chest pain, no chest tightness No headache, no blurry vision Has been afebrile Review of Systems 2 Review of Systems: All systems reviewed & are unremarkable except as noted in Subjective Physical Exam 2 Physical Exam: Constitutional: No acute distress HEENT: EOMI, PERRLA Respiratory system: Decreased air entry on the left side, no wheeze, no rhonchi, mild crackles bilateral lower lobes CVS: S1-S2 positive, no murmurs or gallops, tachycardia Abdomen: Soft, nontender, nondistended, positive bowel sounds x4 Extremities: +2 pulses bilaterally radialis/ dorsalis pedis, no cyanosis, no edema Neuro: Awake alert oriented x3 Psych: Normal mood and affect G/U: No [place] Skin: no rashes, warm and dry Lymphatic: no cervical or axillary lymphadenopathy Results & Data Results & Data Vital Signs (Past 12 Hours) Vital Signs Temp Pulse Pulse Resp BP Pulse Ox Pulse Ox 01/31/24 05:00 91 01/31/24 02:50 36.7 C 109 H 18 120/73 91 01/31/24 00:00 117 H 01/30/24 22:49 37.1 C 119 H 19 111/62 92 O2 Del Method O2 Del Method 01/31/24 05:00 Room Air 01/31/24 02:50 Room Air 01/31/24 00:00 01/30/24 22:49 Room Air Laboratory Results 01/31/24 05:25 01/31/24 05:25 PG Care Time/CCT Total # of Minutes Spent Total Time Spent with Patient: Total time spent is greater than 50% in coordination of care (as documented) at patient's floor/unit and/or counseling patient: Coding Level of Care Code 83866 SUB INP/OBS CARE 3/50MIN Diagnoses Bilateral pleural effusion J90 Shortness of breath R06.02
--- NOTE | 2024-01-31 08:06 | Oncology Consultation ---
Date of Consultation January 31, 2024 Assessment & Plan (1) Mass of uterus: Will await the results of the cytology to understand whether there is any metastatic disease to the chest and the pleural fluid or not. If the pleural fluid is negative in that case will recommend intra-abdominal biopsy which can be done from the peritoneal nodules or the patient will need to see one of my colleagues with [facility] to biopsy the uterine mass appropriately (2) Bilateral pleural effusion: Will await cytology results to understand whether the patient has malignant disease in the pleural effusion or not. Plan . Will wait for cytology results. Thank you for this interesting oncological consult. A total of 60 minutes were spent in counseling, coordination of care, review of prior records. History of Present Illness Reason for Consultation: Abdominal mass ? peritoneal nodules pleural effusion Attending Physician: Farzaneh Smart MD History of Present Illness The patient is a very pleasant 58-year-old woman with no other past medical issues who went to the urgent care because of increasing dyspnea on exertion, abdominal pain And weight loss. She went to the [facility] and had a CT angiogram along with CT of the abdomen pelvis. The CT angiogram of the chest was done on 01/29/2024 which revealed large right and moderate left pleural effusion. The CT of the abdomen pelvis was done on the same day which revealed a large heterogenous 21.9 x 16.6 x 18.3 centimeter mass in the lower abdomen, mild free fluid in the abdomen and pelvis and nodularity of the omentum concerning for metastatic disease. Medical oncology has been consulted to assist in management of this patient with presumed intra-abdominal malignancy and bilateral pleural effusion. Currently the patient is doing much better. She is s/p thoracentesis, has noticed improvement of her shortness of breath. Reports Allergies Allergy/AdvReac Type Severity Reaction Status Date / Time No Known Allergies Allergy Unverified 01/29/24 21:05 Home Medications Medication Instructions Recorded Confirmed Type Echinacea purpurea extract 125 mg 0 mg PO DAILY 01/29/24 01/29/24 History tablet (echinacea) ascorbic acid (vitamin C) 1,000 mg 1 g PO DAILY 01/29/24 01/29/24 History tablet (Vitamin C) cholecalciferol (vitamin D3) 25 25 mcg PO DAILY 01/29/24 01/29/24 History mcg (1,000 unit) tablet (Vitamin D3) elderberry fruit 350 mg capsule 0 mg PO DAILY 01/29/24 01/29/24 History omega 7-alb-zwb-fish oil 1,000 mg 1 cap PO DAILY 01/29/24 01/29/24 History (120 mg-180 mg) capsule (Fish Oil) Patient History Social History Smoking Status: Never smoker Hx Alcohol Use: No Hx Substance Use: No Preferred Language: Khmer Communication Ability: Effective Chisel Grinder Required: No Beliefs That Will Affect Care: None Current Living Situation: Spouse Other Information That Helps Us Care for You: No Feels Safe at Home: Yes Safety Concerns: Feels Safe At This Time Assistive Devices: None Review of Systems Review of Systems: All systems reviewed & are unremarkable except as noted in HPI & below Constitutional: as per Subjective / HPI Eyes: as per Subjective / HPI Ear, Nose, Mouth, Throat: as per Subjective / HPI Respiratory: as per Subjective / HPI Cardiovascular: as per Subjective / HPI Gastrointestinal: as per Subjective / HPI Genitourinary: as per Subjective / HPI Musculoskeletal: as per Subjective / HPI Integumentary: as per Subjective / HPI Neurologic: as per Subjective / HPI Psychiatric: as per Subjective / HPI Endocrine: as per Subjective / HPI Hematologic / Lymphatic: as per Subjective / HPI Allergy / Immunological: as per Subjective / HPI Physical Exam Constitutional: WD/WN, vitals as above Eyes: PERRL, conjunctivae normal, anicteric sclerae ENMT: external ear and nose normal, oropharynx normal Neck: trachea midline, no thyromegaly Respiratory: normal respiratory effort, lungs clear to auscultation Cardiovascular: RRR, no murmur, no edema Gastrointestinal (Abdomen): normal bowel sounds, soft, nontender, no hepatosplenomegaly Musculoskeletal: no cyanosis or clubbing, extremities motor strength 5/5 Skin: no rashes, warm and dry Neurologic: patellar DTR's 2+ bilat, sensation intact Psychiatric: A+Ox3, euthymic affect Results & Data Vital Signs (Past 12 Hours) Vital Signs Temp Pulse Pulse Resp BP Pulse Ox Pulse Ox 01/31/24 05:00 91 01/31/24 02:50 36.7 C 109 H 18 120/73 91 01/31/24 00:00 117 H 01/30/24 22:49 37.1 C 119 H 19 111/62 92 O2 Del Method O2 Del Method 01/31/24 05:00 Room Air 01/31/24 02:50 Room Air 01/31/24 00:00 01/30/24 22:49 Room Air
--- NOTE | 2024-01-31 09:10 | Procedure Note ---
Procedure Note Date of Service January 31, 2024 Note Procedure: Diagnostic therapeutic ultrasound-guided catheter thoracentesis Automatic Door Mechanic: Dr. Debra Haji Indication: Pleural effusion Consent: Signed by patient and verified with timeout prior to procedure Anesthesia: 1% lidocaine without epinephrine local. Procedure: Consent was verified and timeout performed. Appropriate imaging studies were reviewed prior to the procedure. Patient was placed in a seated position and limited thoracic ultrasound was performed of the left chest. See separate imaging. Appropriate site above the diaphragm for thoracentesis was selected. The skin was prepped and draped in normal sterile fashion. Lidocaine was used for local analgesia. Fluid was aspirated via the finder needle. A small skin cristy was made with the scalpel and the catheter over the needle apparatus was advanced over the rib into the pleural space. Using the syringe one-way valve system, a total of 600 mL's of serosanguinous fluid was removed. The catheter was removed and observed to be intact. A sterile dressing was applied. Post procedure chest x-ray was ordered. Fluid was sent for labs, culture and cytology. Complications: None Blood loss: < 1 cc Coding CPT Codes Pulmonary/Thoracic - Pulmonary and Thoracic: 18792 Thoracentesis w imaging ([id number]) [facility] [place] Procedure Codes (Charges) Pulmonary/Thoracic Procedure 1: Pulmonary and Thoracic: 18878 Thoracentesis w imaging
[2024-01-31] MEDS: MoRPHine SULFATE 4 MG/ML 1 ML CARP\\VIAL IV STA (10:25)
[2024-01-31 10:27] LABS: Total Protein Pleural Fluid 4.7 gm/dl
[2024-01-31 10:34] LABS: Appearance Pleural Fluid Cloudy; Color Pleural Fluid Red; RBC Pleural Fluid Auto 60000 /uL; Source Pleural Fluid Left Lung; WBC Pleural Fluid Auto 6178 /uL
--- NOTE | 2024-01-31 11:11 | XRay Report ---
XR chest 1V portable HISTORY: 58 years-old Female post left throacentesis right pleural effusion. Status post thoracentes is COMPARISON: 01/30/2024 TECHNIQUE: AP view of the chest FINDINGS: Layering pleural effusions with mild bibasilar densities, right greater than left. Pulmonary vascular congestion. No pneumothorax. Bones appear grossly intact. Heart size is unchanged. IMPRESSION: 1. Layering pleural effusions with progressive right basilar consolidation. 2. No pneumothorax identified. ACT 112: Negative or not required by law. The above report was generated using voice recognition software. It may contain grammatical, syntax o r spelling errors. Electronically signed by: Hector Wolfe M.D. 01/31/2024 11:09 AM
[2024-01-31 12:53] LABS: Lymphocytes, Fluid 43 %; Mono,Macrophage,Mesothelial 55 %; Neutrophils, Fluid 2 %
--- NOTE | 2024-01-31 19:12 | Surgery Consultation ---
Date of Consultation January 31, 2024 Assessment & Plan (1) Mass of uterus: The patient has been admitted on the hospitalist service. The patient is currently undergoing evaluation to ascertain the cause of patient's abnormalities noted on imaging (abdominal mass, free fluid in the abdomen/pelvis, pleural effusions), with malignancy the likely cause As noted, the patient has undergone a thoracentesis with cytology pending Tumor markers have been sent and a CEA level is nonelevated; CA 199 has been sent and is pending General surgery has been asked to see the patient for consideration of an intra-abdominal biopsy General surgical care will proceed as follows: Will await the results of patient's tumor markers and also await the cytology of patient's thoracentesis If the results of the patient's thoracentesis does give an adequate tissue diagnosis to ascertain the patient's diagnosis general surgical services will not be required If the results of the patient's thoracentesis are inconclusive or if additional tissue is needed general surgery will plan on performing an intra- abdominal biopsy If an intra-abdominal biopsy is required, Dr. Bernal will perform a diagnostic laparoscopy on 02/02/2024 I had a lengthy discussion with the patient and her family who was present at the bedside outlining the above plan and they are in agreement Additional recommendations be forthcoming based on her clinical course as it unfolds History of Present Illness Reason for Consultation: Abdominal mass, need for biopsy Attending Physician: Farzaneh Smart MD History of Present Illness This is a 58-year-old female who presented to [facility] and was admitted to the hospital on 01/30/2024. The patient notes that she initially went to an urgent care because the patient noted for approximate 2 weeks prior to presentation she was experiencing some worsening fatigue, cough, and shortness of breath. Patient also reports that she has lost approximately 15 to 20 pounds over the same timeframe. She does not report any chest pain. She denies any fevers, shakes, or chills. She did report some increased abdominal fullness/bloating and even described her abdomen as a sensation of as though she was . The patient reports that she has remained up-to-date with her [employer] checkups and has never had any abnormalities on these examinations.. She does note that she has never had a colonoscopy. She notes that she has had prior abdominal surgery in the form of a laparoscopic tubal ligation but has not had any additional abdominal surgeries. Since admission to the hospital the patient has had labs and imaging which I independent reviewed. She did have a multitude of imaging studies on 01/29/2024. A CT scan of the abdomen pelvis showed a heterogeneous 21.9 x 16.6 x 18.3 cm mass in the lower abdomen that appeared to extend from the uterus and was concerning for malignancy. There is some free fluid in the abdomen and pelvis. There is nodularity noted on the omentum concerning for metastatic disease. A chest x-ray was performed on the same date that showed a moderate left and moderate to large right pleural effusion. A CT scan of the chest was performed that showed no evidence of pulmonary emboli and the above-noted pleural effusions were identified on this study. On 01/31/2024 the patient had an echocardiogram which showed a 70% ejection fraction. No pericardial effusion was noted. No significant valvular disease was noted. Patient's most recent labs were from today where CBC revealed white blood cell count was normal. The patient's platelet count was noted to be 4 and 82,000 and her hemoglobin and hematocrit were 9.7 and 31.2. Chemistry profile showed sodium and potassium as well as BUN and creatinine were normal. The patient had a CEA level checked that was nonelevated. Earlier today the patient did undergo a left thoracentesis with 600 cc of serosanguineous fluid was removed. This was sent for appropriate analysis. Following this procedure the patient did note some improvement of her shortness of breath. At the time of my interview she was resting comfortably in bed and she was in no distress. Concerning past medical history the patient denies any previous medical problems Allergies Allergy/AdvReac Type Severity Reaction Status Date / Time No Known Allergies Allergy Unverified 01/29/24 21:05 Home Medications Medication Instructions Recorded Confirmed Type Echinacea purpurea extract 125 mg 0 mg PO DAILY 01/29/24 01/29/24 History tablet (echinacea) ascorbic acid (vitamin C) 1,000 mg 1 g PO DAILY 01/29/24 01/29/24 History tablet (Vitamin C) cholecalciferol (vitamin D3) 25 25 mcg PO DAILY 01/29/24 01/29/24 History mcg (1,000 unit) tablet (Vitamin D3) elderberry fruit 350 mg capsule 0 mg PO DAILY 01/29/24 01/29/24 History omega 7-gfg-lhb-fish oil 1,000 mg 1 cap PO DAILY 01/29/24 01/29/24 History (120 mg-180 mg) capsule (Fish Oil) Patient History Social History Smoking Status: Never smoker Hx Alcohol Use: No Hx Substance Use: No Preferred Language: Slovak Communication Ability: Effective Nursing Manager Required: No Beliefs That Will Affect Care: None Current Living Situation: Spouse Other Information That Helps Us Care for You: No Feels Safe at Home: Yes Safety Concerns: Feels Safe At This Time Assistive Devices: None Review of Systems Review of Systems: All systems reviewed & are unremarkable except as noted in HPI & below Physical Exam Constitutional: WD/WN, vitals as above Eyes: no conjunctival abnormality ENMT: Ears: no hearing impairment and no external ear abnormality Mouth: no oropharynx abnormality Neck: trachea midline Respiratory: normal respiratory effort; no respiratory distress and no labored breathing Cardiovascular: Rate/Rhythm: regular rate and regular rhythm Gastrointestinal (Abdomen): Abdomen is soft and nontender. There did appear some bloating/distention of the lower abdomen. There is no rebound tenderness or guarding. Musculoskeletal: No calf tenderness, no lower extremity edema Skin: no rashes Neurologic: moves all extremities Psychiatric: A+Ox3, euthymic affect Results & Data Vital Signs (Past 12 Hours) Vital Signs Temp Pulse Pulse Resp BP Pulse Ox O2 Del Method 01/31/24 16:08 37.1 C 113 H 18 124/77 94 Room Air 01/31/24 15:06 109 H 01/31/24 11:49 37.0 C 107 H 22 109/74 96 Room Air 01/31/24 08:31 36.8 C 101 H 17 106/76 96 Room Air 01/31/24 08:00 Room Air PG Care Time/CCT Total # of Minutes Spent Total Time Spent with Patient: Total time spent is greater than 50% in coordination of care (as documented) at patient's floor/unit and/or counseling patient: Coding Level of Care Code 61272 IN/OBS CONSULT LVL 5,80M Diagnoses Mass of uterus N85.8
[2024-02-01 06:09] LABS: Hematocrit (blood only) 30.7 % (37.0-47.0); Hemoglobin 9.5 g/dl (12.0-16.0); Mean Corpuscular Hemoglobin 21.4 pg (25.0-34.0); Mean Corpuscular Hgb Conc 30.9 g/dL (32.0-36.0); Mean Corpuscular Volume 69.3 fL (80.0-100.0); Platelet Count 451 K/uL (130-400); RDW Coefficient of Variation 15.3 % (11.5-14.5); RDW Standard Deviation 38.2 fL (36.4-46.3); Red Blood Count 4.43 M/uL (4.20-5.40)
[2024-02-01 06:26] LABS: Calcium 8.4 mg/dl (8.6-10.3); Creatinine Clr Calc Pharmacy 100.6 ml/min; Est GFR (African American) 120.6 ml/min; Magnesium 1.8 mg/dl (1.7-2.4); Phosphorus 2.8 mg/dl (2.5-4.9); Potassium 3.7 mmol/L (3.5-5.1)
--- NOTE | 2024-02-01 07:12 | Pulmonology Progress Note ---
Date of Service February 01, 2024 Assessment & Plan (1) Bilateral pleural effusion: (2) Shortness of breath: Plan CTA chest 01/29/2024 personally reviewed: Bilateral pleural effusions, large on the right, moderate on the left Compressive atelectasis of the right lower lobe Atelectasis of the right middle lobe No significant mediastinal lymphadenopathy --Bilateral pleural effusion R>L BNP 18 Procalcitonin 8.63 Given abdominal mass, the probability of pleural effusion coming from ovarian source of malignancy is high S/p right-sided thoracentesis 01/30/2024, 1800 mL serosanguineous fluid removed, exudative as per lights criteria, cytology negative on the right side Pleural fluid: LDH 387, protein 5.1, pH 7.44 Serum: LDH 368, protein 6.5 S/p left-sided thoracentesis 01/31/2024, 600 mL serosanguineous fluid removed, exudative by lights criteria Plan: Chest x-ray from today shows small pleural effusion on the right side, left costophrenic angle is clean. Probability of getting the fluid back is high. Cytology is negative on the right side. Follow-up cytology on the left side. Continue with incentive spirometry Case was discussed with primary team No further recommendation from pulmonary perspective, will sign off Please call directly with any questions Please note the above document was generated using voice recognition software. It may contain grammatical, syntax or spelling errors.Any formal questions or concerns about the content, text or information contained within the body of this dictation should be directly addressed to the provider for clarification. Admission and Anticipated Discharge Date Admission Date: January 30, 2024 Subjective Patient seen and examined at bedside. No acute distress, no adverse events overnight She was sitting with the family in the room. She was in pleasant mood. Stated that the breathing is significantly improved since thoracentesis Denies any nausea vomiting No headache No chest pain Review of Systems 2 Review of Systems: All systems reviewed & are unremarkable except as noted in Subjective Physical Exam 2 Physical Exam: Constitutional: No acute distress HEENT: EOMI, PERRLA Respiratory system: Decreased air entry bilaterally, no wheeze, no rhonchi, mild crackles bilateral lower lobes CVS: S1-S2 positive, no murmurs or gallops, tachycardia Abdomen: Soft, nontender, nondistended, positive bowel sounds x4 Extremities: +2 pulses bilaterally radialis/ dorsalis pedis, no cyanosis, no edema Neuro: Awake alert oriented x3 Psych: Normal mood and affect G/U: No [place] Skin: no rashes, warm and dry Lymphatic: no cervical or axillary lymphadenopathy Results & Data Results & Data Vital Signs (Past 12 Hours) Vital Signs Temp Pulse Pulse Resp BP Pulse Ox O2 Del Method 02/01/24 03:20 36.7 C 98 H 18 114/70 94 Room Air 02/01/24 00:44 Room Air 02/01/24 00:00 101 H 01/31/24 22:26 36.6 C 105 H 18 120/78 95 Room Air 01/31/24 19:15 36.8 C 111 H 19 115/81 93 Room Air Laboratory Results 02/01/24 05:35 02/01/24 05:35 PG Care Time/CCT Total # of Minutes Spent Total Time Spent with Patient: Total time spent is greater than 50% in coordination of care (as documented) at patient's floor/unit and/or counseling patient: Coding Level of Care Code 43356 SUB INP/OBS CARE 2/35MIN Diagnoses Bilateral pleural effusion J90 Shortness of breath R06.02
--- NOTE | 2024-02-01 07:18 | XRay Report ---
XR chest 1V portable HISTORY: Right pleural effusion status post thoracentesis. Follow-up. COMPARISON: Chest 01/31/2024. FINDINGS: No pneumothorax. The heart is normal in size. There are low lung volumes. Small bilateral p leural effusions and bibasilar densities persist. There is a small linear density within the right mi dlung zone which favor subsegmental atelectasis. No acute fractures. No evidence for pulmonary edema. IMPRESSION: Small bilateral pleural effusions and bibasilar densities persist. ACT 112: Negative or not required by law. Electronically signed by: Sarwat James M.D. 02/01/2024 7:17 AM
[2024-02-01] MEDS: FERROUS SULFATE 325 MG/7.4 ML UDP PO SCH (08:56)
--- NOTE | 2024-02-01 09:58 | Surgery Progress Note ---
Date of Service February 01, 2024 Assessment & Plan (1) Mass of uterus: Plan: General surgery consulted for possible BX of uterine mass seen on CT scan Will wait for pathology results of thoracentesis, if this is inconclusive the patient will be taken to the OR for a biopsy Will tentatively schedule her for OR tomorrow for a diagnostic laparoscopy biopsy with Dr. Bernal , will make NPO [place] Pt seen and examined with Dr. Bernal as above. awaiting cytology of pleural fluid. if neg will plan laparoscopy with omental/poss uterine mass bx tomorrow. Admission and Anticipated Discharge Date Admission Date: January 30, 2024 Subjective pt report feeling well since thoracentesis No SOB Review of Systems Respiratory: no dyspnea Gastrointestinal: no abdominal pain Physical Exam 2 Constitutional: well developed, cooperative and comfortable; no acute distress Respiratory: normal respiratory effort and able to speak in complete sentences; no respiratory distress Results & Data Vital Signs (Past 12 Hours) Vital Signs Temp Pulse Pulse Resp BP BP Pulse Ox 02/01/24 08:00 101 H 02/01/24 07:16 98.2 F 103 H 19 110/76 93 02/01/24 03:20 98.1 F 98 H 18 114/70 94 02/01/24 00:44 02/01/24 00:00 101 H 01/31/24 22:26 97.9 F 105 H 18 120/78 95 O2 Del Method 02/01/24 08:00 02/01/24 07:16 Room Air 02/01/24 03:20 Room Air 02/01/24 00:44 Room Air 02/01/24 00:00 01/31/24 22:26 Room Air PG Care Time/CCT Total # of Minutes Spent Total Time Spent with Patient: Total time spent is greater than 50% in coordination of care (as documented) at patient's floor/unit and/or counseling patient: Coding Level of Care Code 90249 SUB INP/OBS CARE 125MIN Diagnoses Mass of uterus N85.8
[2024-02-01 13:38] LABS: Cancer Antigen 19-9 <3 U/mL (<34); Haptoglobin 493 mg/dL (43-212)
--- NOTE | 2024-02-01 16:56 | Hospitalist Progress Note ---
Date of Service February 01, 2024 Assessment & Plan (1) Bilateral pleural effusion: Plan: Ms. 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 Patient endorses right sided abdominal pain, unintentional weightloss, SOB and orthopnea. As per prior provider Spoke with Dr. Vasu Chairez over phone who recommends attempted transfer to tertiary care center. Spoke to [facility] [facility] who states he will not accept as transfer as "primary is not concerned" Dr Henriquez recommended CA 19-9, CEA tumor markers. Dr. Henriquez also mentioned that given the size and concern for carcinomatosis, he would likely defer to Med Onc regardless. Discussed with IR this am regarding biopsy of tissue: "this is something that IR typically will not biopsy and os handled by STAFF MIDWIFE surgery..." Bilateral pleural effusions, exudative Abdominal mass c/f ovarian cancer with carcinomatosis --CT ABP with heterogeneous 21 x 16 x 18 cm mass in the lower abdomen , appears to extend from uterus. Nodularity of the omentum concerning for metastatic disease on the CT scan --CXR:Layering pleural effusions with progressive right basilar consolidation. No pneumothorax identified. --ECHO: Left ventricle is normal in size. Normal left ventricular wall thickness. Left ventricle wall motion is normal. EF 65 to 70%. No valvular disease. No pericardial effusion --S/P diagnostic/therapeutic ultrasound-guided thoracentesis -- Pleural fluid studies pending --- Appreciate pulmonology, DIRECTOR OF CASINO input --Appreciate oncology input If pleural fluid studies negative for malignancy, will need intra-abdominal biopsy Surgery on board N.p.o. after midnight for possible intra-abdominal biopsy tomorrow Microcytic anemia Leukocytosis Thrombocytosis Iron deficiency B12 and folate normal, low retic Continue oral iron supplements Hypokalemia Resolved Monitor Sinus tachycardia CTA chest no PE Iso pleural effusions and underlying malignant process ECHO reviwed CTM on tele Abnormal urinalysis UTI ruled out Rocephin discontinued Asymptomatic DVT Px: SCDs for now Code Status Full Code Admission and Anticipated Discharge Date Admission Date: January 30, 2024 Subjective Patient is seen and examined at bedside Slightly anxious during my encounter Family at bedside Denies any chest pain, dyspnea, nausea, vomiting, abdominal pain No other complaints Review of Systems Review of Systems: All systems reviewed & are unremarkable except as noted in Subjective Physical Exam Physical Exam: Physical Exam: Vitals signs as noted above General Appearance:Moderately built and nourished, no apparent distress Head: normocephalic, Atraumatic Eyes: normal inspection, EOMI Neck: supple, Trachea midline Respiratory/Chest: Normal breath sounds, CTA, No accessory muscle use Cardiovascular: S1, S2, No murmur, +Tachycardia Abdomen/GI:Soft, Non tender, mildly distended, Bowel sounds present Extremities/Musculoskeletal:normal inspection, no edema Neurologic/Psych:AAOX3, grossly no focal neurological deficits Skin: normal color, warm Results & Data Results & Data Vital Signs (Past 12 Hours) Vital Signs Temp Pulse Pulse Resp BP Pulse Ox O2 Del Method 02/01/24 14:49 119 H 02/01/24 10:54 36.9 C 112 H 21 104/71 95 Room Air 02/01/24 08:00 101 H 02/01/24 07:16 36.8 C 103 H 19 110/76 93 Room Air Laboratory Results Short CBC 02/01/24 Range/Units 05:35 WBC 9.00 (4.8-10.8) K/ul Hgb 9.5 L (12.0-16.0) g/dl Hct 30.7 L (37.0-47.0) % Plt Count 451 H (130-400) K/uL BMP 02/01/24 05:35 Sodium 137 Potassium 3.7 Chloride 102 Carbon Dioxide 26 BUN 7 Creatinine 0.54 L Glucose 109 H Calcium 8.4 L
--- NOTE | 2024-02-01 17:53 | Communication Note ---
Date of Service: February 01, 2024 Met patient at bedside with family and present. Discussion included results of first pleural fluid that was sent for cytology, which is not showing any tumor cells. Patient would like to proceed with laparoscopic surgery tomorrow with Dr. Bernal for biopsy of mass. Procedure explained and questions answered. NPO at [place].
[2024-02-02 06:29] LABS: Hematocrit (blood only) 30.7 % (37.0-47.0); Hemoglobin 9.5 g/dl (12.0-16.0); Mean Corpuscular Hemoglobin 21.6 pg (25.0-34.0); Mean Corpuscular Hgb Conc 30.9 g/dL (32.0-36.0); Mean Corpuscular Volume 69.8 fL (80.0-100.0); Mean Platelet Volume 9.3 fL (9.4-12.4); Platelet Count 474 K/uL (130-400); RDW Coefficient of Variation 15.4 % (11.5-14.5); RDW Standard Deviation 38.5 fL (36.4-46.3)
[2024-02-02 06:57] LABS: BUN Creatinine Ratio 16.7 (10-20); Calcium 8.6 mg/dl (8.6-10.3); Creatinine Clr Calc Pharmacy 113.3 ml/min; Est GFR (African American) 125.3 ml/min; Est GFR (Non-African American) 108.1 ml/min; Potassium 3.7 mmol/L (3.5-5.1)
--- NOTE | 2024-02-02 07:17 | Pulmonology Progress Note ---
Date of Service February 02, 2024 Assessment & Plan (1) Bilateral pleural effusion: (2) Shortness of breath: Plan CTA chest 01/29/2024 personally reviewed: Bilateral pleural effusions, large on the right, moderate on the left Compressive atelectasis of the right lower lobe Atelectasis of the right middle lobe No significant mediastinal lymphadenopathy --Bilateral pleural effusion R>L BNP 18 Procalcitonin 8.63 Given abdominal mass, the probability of pleural effusion coming from ovarian source of malignancy is high S/p right-sided thoracentesis 01/30/2024, 1800 mL serosanguineous fluid removed, exudative as per lights criteria, cytology negative on the right side Pleural fluid: LDH 387, protein 5.1, pH 7.44 Serum: LDH 368, protein 6.5 S/p left-sided thoracentesis 01/31/2024, 600 mL serosanguineous fluid removed, exudative by lights criteria Plan: Probability of getting the fluid back is high. Cytology is negative on the right side. Follow-up cytology on the left side. Continue with incentive spirometry Case was discussed with primary team No further recommendation from pulmonary perspective, will sign off Please call directly with any questions Please note the above document was generated using voice recognition software. It may contain grammatical, syntax or spelling errors.Any formal questions or concerns about the content, text or information contained within the body of this dictation should be directly addressed to the provider for clarification. Admission and Anticipated Discharge Date Admission Date: January 30, 2024 Subjective Patient seen and examined at bedside. No acute distress, no adverse events overnight Was saturating 97% on room air. Denies any issues with her breathing, no chest pain, no coughing. Fair appetite Patient scheduled for biopsy today Review of Systems 2 Review of Systems: All systems reviewed & are unremarkable except as noted in Subjective Physical Exam 2 Physical Exam: Constitutional: No acute distress HEENT: EOMI, PERRLA Respiratory system: Decreased air entry on the right side, no wheeze, no rhonchi, mild crackles bilateral lower lobes CVS: S1-S2 positive, no murmurs or gallops Abdomen: Soft, nontender, nondistended, positive bowel sounds x4 Extremities: +2 pulses bilaterally radialis/ dorsalis pedis, no cyanosis, no edema Neuro: Awake alert oriented x3 Psych: Normal mood and affect G/U: No [place] Skin: no rashes, warm and dry Lymphatic: no cervical or axillary lymphadenopathy Results & Data Results & Data Vital Signs (Past 12 Hours) Vital Signs Temp Pulse Pulse Resp BP Pulse Ox O2 Del Method 02/02/24 03:31 36.6 C 104 H 16 107/76 95 Room Air 02/02/24 00:00 112 H 02/01/24 22:32 36.7 C 103 H 18 110/74 95 Room Air 02/01/24 20:00 Room Air 02/01/24 19:55 36.9 C 119 H 18 105/77 95 Room Air Laboratory Results 02/02/24 05:43 02/02/24 05:43 PG Care Time/CCT Total # of Minutes Spent Total Time Spent with Patient: Total time spent is greater than 50% in coordination of care (as documented) at patient's floor/unit and/or counseling patient: Coding Level of Care Code 73006 SUB INP/OBS CARE 2/35MIN Diagnoses Bilateral pleural effusion J90 Shortness of breath R06.02
[2024-02-02] MEDS ORDERED: fentaNYL citrate PF 100 MCG/2 ML VIAL ONE (12:57)
[2024-02-02] MEDS ORDERED: MIDAZOLAM HCL 1 MG/ML 2ML VIAL ONE (12:58)
--- NOTE | 2024-02-02 14:07 | Hospitalist Progress Note ---
Date of Service February 02, 2024 Assessment & Plan (1) Bilateral pleural effusion: Plan: Ms. 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 Patient endorses right sided abdominal pain, unintentional weightloss, SOB and orthopnea. As per prior provider Spoke with Dr. Vasu Chairez over phone who recommends attempted transfer to tertiary care center. Spoke to [facility] [place] [facility] who states he will not accept as transfer as "primary is not concerned" Dr Henriquez recommended CA 19-9, CEA tumor markers. Dr. Henriquez also mentioned that given the size and concern for carcinomatosis, he would likely defer to Med Onc regardless. Discussed with IR this am regarding biopsy of tissue: "this is something that IR typically will not biopsy and os handled by [employer] ATTENDANT surgery..." Bilateral pleural effusions, exudative Abdominal mass c/f ovarian cancer with carcinomatosis --CT ABP with heterogeneous 21 x 16 x 18 cm mass in the lower abdomen , appears to extend from uterus. Nodularity of the omentum concerning for metastatic disease on the CT scan --CXR:Layering pleural effusions with progressive right basilar consolidation. No pneumothorax identified. --ECHO: Left ventricle is normal in size. Normal left ventricular wall thickness. Left ventricle wall motion is normal. EF 65 to 70%. No valvular disease. No pericardial effusion --S/P diagnostic/therapeutic ultrasound-guided thoracentesis -- Pleural fluid cytology pending --- Appreciate pulmonology, PACKAGE SEALER MACHINE input --Appreciate oncology input --Planned for intra-abdominal biopsy today Appreciate Surgery help Microcytic anemia Leukocytosis Thrombocytosis Iron deficiency B12 and folate normal, low retic Continue oral iron supplements Hypokalemia Resolved Monitor Sinus tachycardia CTA chest no PE Iso pleural effusions and underlying malignant process ECHO reviwed CTM on tele Abnormal urinalysis UTI ruled out Rocephin discontinued Asymptomatic DVT Px: SCDs for now Code Status Full Code Admission and Anticipated Discharge Date Admission Date: January 30, 2024 Subjective Patient is seen and examined at bedside States feeling well today No new complaints Discussed in detail with patient and patient's family at bedside Plan for laparoscopic diagnostic biopsy of intra-abdominal mass today next Denies any chest pain, dyspnea, nausea, vomiting, abdominal pain Review of Systems Review of Systems: All systems reviewed & are unremarkable except as noted in Subjective Physical Exam Physical Exam: Physical Exam: Vitals signs as noted above General Appearance:Moderately built and nourished, no apparent distress Head: normocephalic, Atraumatic Eyes: normal inspection, EOMI Neck: supple, Trachea midline Respiratory/Chest: Normal breath sounds, CTA, No accessory muscle use Cardiovascular: S1, S2, No murmur, +Tachycardia Abdomen/GI:Soft, Non tender, mildly distended, Bowel sounds present Extremities/Musculoskeletal:normal inspection, no edema Neurologic/Psych:AAOX3, grossly no focal neurological deficits Skin: normal color, warm Results & Data Results & Data Vital Signs (Past 12 Hours) Vital Signs Temp Pulse Pulse Resp BP BP Pulse Ox 02/02/24 13:39 37 C 120 H 18 127/75 98 02/02/24 11:09 36.8 C 110 H 18 116/70 96 02/02/24 08:00 02/02/24 08:00 99 H 02/02/24 07:28 36.7 C 108 H 18 115/85 96 02/02/24 03:31 36.6 C 104 H 16 107/76 95 O2 Del Method 02/02/24 13:39 Room Air 02/02/24 11:09 Room Air 02/02/24 08:00 Room Air 02/02/24 08:00 02/02/24 07:28 Room Air 02/02/24 03:31 Room Air Laboratory Results Short CBC 02/02/24 Range/Units 05:43 WBC 9.30 (4.8-10.8) K/ul Hgb 9.5 L (12.0-16.0) g/dl Hct 30.7 L (37.0-47.0) % Plt Count 474 H (130-400) K/uL BMP 02/02/24 05:43 Sodium 137 Potassium 3.7 Chloride 102 Carbon Dioxide 27 BUN 8 Creatinine 0.48 L Glucose 114 H Calcium 8.6
--- NOTE | 2024-02-02 14:29 | History & Physical Bridge Note ---
Date of Service February 02, 2024 History & Physical Bridge Note I have examined the patient, reviewed the History & Physical and in the interval since the performance of the History & Physical I have noted the following changes of clinical significance: no changes noted pleural fluid neg. discussed options/risks ( bleeding/infection/injury to an organ/dvt/pe/mi/cva etc...) questions answered. will proceed today with diagnostic laparoscopy with biopsies as indicated.
--- NOTE | 2024-02-02 15:02 | Anesthesiology Consultation ---
Date of Service February 02, 2024 History Surgery Operation Date: 02/02/24 15:35 Proposed Procedures p Diagnostic Laparoscopy, Possible Omentum Biopsy - Heath Bernal, Height/Weight Height: 5 ft 1 in Weight: 68.7 kg Allergies Allergy/AdvReac Type Severity Reaction Status Date / Time No Known Allergies Allergy Unverified 01/29/24 21:05 Medications Home Medications Medication Instructions Recorded Confirmed Last Taken Echinacea purpurea extract 125 mg 0 mg PO DAILY 01/29/24 01/29/24 Unknown tablet (echinacea) ascorbic acid (vitamin C) 1,000 mg 1 g PO DAILY 01/29/24 01/29/24 Unknown tablet (Vitamin C) cholecalciferol (vitamin D3) 25 25 mcg PO DAILY 01/29/24 01/29/24 Unknown mcg (1,000 unit) tablet (Vitamin D3) elderberry fruit 350 mg capsule 0 mg PO DAILY 01/29/24 01/29/24 Unknown omega 6-suy-sqr-fish oil 1,000 mg 1 cap PO DAILY 01/29/24 01/29/24 Unknown (120 mg-180 mg) capsule (Fish Oil) Active Medications Generic Name Dose Route Start Last Admin Trade Name Freq PRN Reason Stop Dose Admin Ferrous Sulfate 325 mg 02/01/24 09:00 02/01/24 08:56 Ferrous Sulfate 325 Mg/7.4 Ml Udp PO 03/02/24 08:59 325 mg QAM DAVID Administration Morphine Sulfate 2 mg 01/30/24 02:05 01/31/24 08:37 Morphine Sulfate 2 Mg/Ml Carp IV 02/13/24 02:04 1 mg Q4H PRN Administration Mod-Sev Pain (Scale 4-10) Vitamin D 25 mcg 01/30/24 09:00 02/01/24 08:56 Cholecalciferol 25 Mcg (1000 Units) Tab PO 02/29/24 08:59 25 mcg DAILY DAVID Administration NPO Date Last Intake of Fluids: 02/01/24 Time Last Intake of Fluids: 22:30 Date Last Intake of Solids: 02/01/24 Time Last Intake of Solids: 22:30 Social History Smoking Status: Never smoker Hx Alcohol Use: No Hx Substance Use: No Physical Exam Vital Signs Last Vital Signs Temp 37 C 02/02/24 13:39 Pulse 120 H 02/02/24 13:39 Resp 18 02/02/24 13:39 BP 127/75 02/02/24 13:39 Pulse Ox 98 02/02/24 13:39 O2 Del Method Room Air 02/02/24 13:39 Testing Laboratory Results 02/02/24 05:43 02/02/24 05:43 Urine Color Dark Yellow 01/29/24 19:38 Urine Appearance Turbid (Clear) A 01/29/24 19:38 Urine pH 6.0 (4.5-7.5) 01/29/24 19:38 Ur Specific [place] 1.038 (1.000-1.030) H 01/29/24 19:38 Urine Protein 2+ (Negative) H 01/29/24 19:38 Urine Glucose (UA) Negative (Negative) 01/29/24 19:38 Urine Ketones 2+ (Negative) H 01/29/24 19:38 Urine Nitrite Negative (Negative) 01/29/24 19:38 Ur Leukocyte Esterase 1+ (Negative) H 01/29/24 19:38 Urine WBC (Auto) 0-5 /hpf (0-5) 01/29/24 19:38 Urine RBC (Auto) >20 /hpf (0-2) H 01/29/24 19:38 U Hyaline Cast (Auto) 3-5 /lpf (0-2) H 01/29/24 19:38 U Epithel Cells (Auto) 6-10 /hpf (0-2) H 01/29/24 19:38 Urine Bacteria (Auto) None Seen (None Seen) 01/29/24 19:38 01/31/24 08:24 Gram Stain - Final Pleural Fluid Aerobic and Anaerobic Culture - Preliminary No growth to date. 01/30/24 16:00 Gram Stain - Final Pleural Fluid Aerobic and Anaerobic Culture - Preliminary No growth to date. 01/31/24 08:24 Acid Fast Bacilli Smear - Final Pleural Fluid 01/30/24 16:00 Acid Fast Bacilli Smear - Final Pleural Fluid 01/29/24 20:39 Aerobic Blood Culture - Preliminary Blood No growth in Aerobic bottle after 48 hours. Anaerobic Blood Culture - Preliminary No growth in Anaerobic bottle after 48 hours. 01/29/24 20:30 Aerobic Blood Culture - Preliminary Blood No growth in Aerobic bottle after 48 hours. Anaerobic Blood Culture - Preliminary No growth in Anaerobic bottle after 48 hours. 01/29/24 19:38 Urine Culture - Final Urine,Clean Catch More than three types of organisms present, all high counts. Repeat collection recommended. No further identifications or sensitivities to follow.
[2024-02-02] MEDS ORDERED: HYDROmorphone INJ 2 MG/ML SYR/VIAL IV PRN (15:08)
[2024-02-02] MEDS ORDERED: ATROPINE SULFATE 0.1 MG/ML 10ML SYR IV PRN (15:08)
[2024-02-02] MEDS ORDERED: ePHEDrine sulfate 50 MG/ML AMP IV PRN (15:08)
[2024-02-02] MEDS ORDERED: ONDANSETRON INJ 2 MG/ML 2 ML VIAL IV PRN (15:08)
[2024-02-02] MEDS: LACTATED RINGER'S 1,000 ML IV SCH ×2 (15:12→19:21)
[2024-02-02] MEDS: ceFAZolin 2000MG 2,000 MG/15 ML SYR IV ONE (16:30)
[2024-02-02] MEDS ORDERED: PROPOFOL IV EMULSION 10 MG/ML 20 ML VIAL IV ONE (17:07)
[2024-02-02] MEDS ORDERED: ROCURONIUM BROMIDE 10 MG/ML 5 ML VIAL IV ONE (17:07)
[2024-02-02] MEDS ORDERED: LIDOCAINE 2% 2 ML VIAL/AMP(20MG/ML) INFIL ONE (17:07)
[2024-02-02] MEDS ORDERED: ONDANSETRON INJ 2 MG/ML 2 ML VIAL ONE (17:07)
[2024-02-02] MEDS ORDERED: DEXAMETHASONE SOD INJ 4 MG/ML VIAL ONE (17:07)
[2024-02-02] MEDS: BUPIVACAINE/EPINEPHRINE 0.5% MPF 1:200,000 30 ML VIAL ONE (17:13)
[2024-02-02] MEDS ORDERED: SUGAMMADEX SODIUM 200 MG/2 ML VIAL IV ONE (17:13)
--- NOTE | 2024-02-02 17:32 | Discharge Summary ---
Date of Service February 02, 2024 Admission HPI Per Admitting Provider 58-year-old female with no significant past medical history went to urgent care because of on and off shortness of breath and on and off abdominal pain and imaging studies showed pleural effusion and was sent here. Patient states for several weeks she is getting on and off shortness of breath. And also on and off right-sided abdominal pain mild to moderate in severity. She states poor appetite. Lost about 10 pounds in last 2 weeks. Denies any fevers. No cough. No headache. No dizziness. No blurred vision. No runny nose or sore throat. No difficulty swallowing. No nausea. Normal bowel and bladder m ovements. Ambulating okay. Hemodynamics are okay. Patient states her family doctor retired and currently she uses [employer]. Past medical history. none. Past surgical history. [place] tooth extraction. Social history. No smoking. No alcohol. Family history. Father had lung cancer and he was smoker. Admission Exam Per Admitting Provider General- Not in distress Head- atraumatic Eyes- PERRL. ENT- oropharynx clear Neck- supple, no JVD. Lungs- clear to auscultation no wheezing. bibasilar crackles. Heart- regular rhythm; no murmur, no gallop. Abdomen- normal bowel sounds, soft, diffuse tenderness, mild guarding present Extremities- no pretibial edema, no erythema seen. Neuro- alert, oriented PERRL, EOMI; no facial palsy; no dysarthria; obeys simple commands Principal Diagnosis Bilateral pleural effusion Abdominal mass Iron deficiency anemia Discharge Data Allergies Allergy/AdvReac Type Severity Reaction Status Date / Time No Known Allergies Allergy Unverified 01/29/24 21:05 Consultations 01/30/24 00:08 ED Decision to Admit Stat 01/30/24 06:55 Consult Oncology Routine 01/30/24 08:00 Consult Gynecology Routine Consult Pulmonology Routine 01/31/24 17:35 Consult General Surgery Routine Procedures Performed Operation Date: 02/02/24 15:35 Actual Procedures p Diagnostic Laparoscopy, Omentum Biopsy(Not Applicable) - Heath Bernal, DO Ordered Studies Laboratory Results WBC 9.30 K/ul (4.8-10.8) 02/02/24 05:43 RBC 4.40 M/uL (4.20-5.40) 02/02/24 05:43 Hgb 9.5 g/dl (12.0-16.0) L 02/02/24 05:43 Hct 30.7 % (37.0-47.0) L 02/02/24 05:43 MCV 69.8 fL (80.0-100.0) L 02/02/24 05:43 MCH 21.6 pg (25.0-34.0) L 02/02/24 05:43 MCHC 30.9 g/dL (32.0-36.0) L 02/02/24 05:43 RDW Std Deviation 38.5 fL (36.4-46.3) 02/02/24 05:43 RDW Coeff of Ben 15.4 % (11.5-14.5) H 02/02/24 05:43 Plt Count 474 K/uL (130-400) H 02/02/24 05:43 MPV 9.3 fL (9.4-12.4) L 02/02/24 05:43 Immature Gran % (Auto) 0.5 % 01/30/24 07:30 Neut % (Auto) 76.9 % 01/30/24 07:30 Lymph % (Auto) 12.4 % 01/30/24 07:30 [place] % (Auto) 9.8 % 01/30/24 07:30 Eos % (Auto) 0.2 % 01/30/24 07:30 Baso % (Auto) 0.2 % 01/30/24 07:30 Reticulocyte % (Auto) 1.59 % (0.50-2.00) 01/31/24 05:25 Neut # (Auto) 8.43 K/uL (1.40-6.50) H 01/30/24 07:30 Lymph # (Auto) 1.36 K/uL (1.20-3.40) 01/30/24 07:30 [place] # (Auto) 1.07 K/uL (0.11-0.59) H 01/30/24 07:30 Eos # (Auto) 0.02 K/uL (0.00-0.50) 01/30/24 07:30 Baso # (Auto) 0.02 K/uL (0.00-0.20) 01/30/24 07:30 Reticulocyte # 0.070 10^6/uL (0.020-0.100) 01/31/24 05:25 Immature Gran # (Auto) 0.05 K/uL (0.01-0.20) 01/30/24 07:30 Immature Retic Fraction 28.7 % (2.3-15.9) H 01/31/24 05:25 Retic Hgb Content 20.3 pg (28.2-36.6) L 01/31/24 05:25 Haptoglobin 493 mg/dL (43-212) H 01/31/24 05:25 Sodium 137 mmol/L (136-145) 02/02/24 05:43 Potassium 3.7 mmol/L (3.5-5.1) 02/02/24 05:43 Chloride 102 mmol/L (98-107) 02/02/24 05:43 Carbon Dioxide 27 mmol/L (21-32) 02/02/24 05:43 Anion Gap 8 (3-11) 02/02/24 05:43 BUN 8 mg/dl (6-23) 02/02/24 05:43 Creatinine 0.48 mg/dl (0.6-1.2) L 02/02/24 05:43 Est Cr Clr Drug Dosing 113.3 ml/min 02/02/24 05:43 Est GFR ( Amer) 125.3 ml/min 02/02/24 05:43 Est GFR (Non-Af Amer) 108.1 ml/min 02/02/24 05:43 BUN/Creatinine Ratio 16.7 (10-20) 02/02/24 05:43 Glucose 114 mg/dl (70-99(Fasting)) H 02/02/24 05:43 Lactate 1.4 mmol/L (0.4-2.0) 01/29/24 20:30 Calcium 8.6 mg/dl (8.6-10.3) 02/02/24 05:43 Phosphorus 2.8 mg/dl (2.5-4.9) 02/01/24 05:35 Magnesium 1.8 mg/dl (1.7-2.4) 02/01/24 05:35 Iron 12 mcg/dl (35-150) L 01/31/24 05:25 TIBC 224 mcg/dl (250-450) L 01/31/24 05:25 Unsaturated IBC 212 mcg/dl (155-355) 01/31/24 05:25 Transferrin % Sat 5 % (15-50) L 01/31/24 05:25 Ferritin 420.9 ng/ml (8-388) H 01/31/24 05:25 Total Bilirubin 0.4 mg/dl (0.2-1.0) 01/30/24 07:30 AST 14 U/L (13-39) 01/29/24 19:49 ALT 7 U/L (7-52) 01/29/24 19:49 Alkaline Phosphatase 66 U/L (34-104) 01/29/24 19:49 Lactate Dehydrogenase 226 U/L (86-244) 01/31/24 05:25 Troponin I High Sens 4.1 pg/ml (0-14) 01/29/24 19:49 B-Natriuretic Peptide 18 pg/ml (0-100) 01/29/24 20:30 Total Protein 6.5 gm/dl (6.0-8.3) 01/30/24 07:30 Albumin 3.3 gm/dl (3.4-5.0) L 01/30/24 07:30 Globulin 4.0 gm/dl (2.5-4.0) 01/29/24 19:49 Albumin/Globulin Ratio 1.0 (0.9-2) 01/29/24 19:49 Lipase 32 U/L (11-82) 01/29/24 19:49 Carcinoembryonic Ag 0.1 ng/ml (0-2.5) 01/31/24 05:25 CA 19-9 Antigen <3 U/mL (<34) 01/31/24 05:25 CA 125 Antigen 412 U/mL (<35) H 01/29/24 22:18 Vitamin B12 200 pg/ml (180-914) 01/31/24 05:25 Folate 6.04 ng/ml (>5.38) 01/31/24 05:25 Procalcitonin 8.63 ng/ml (0-0.5) H 01/29/24 19:49 HCG, Qual Negative (Negative) 01/29/24 19:49 Urine Color Dark Yellow 01/29/24 19:38 Urine Appearance Turbid (Clear) A 01/29/24 19:38 Urine pH 6.0 (4.5-7.5) 01/29/24 19:38 Ur Specific [place] 1.038 (1.000-1.030) H 01/29/24 19:38 Urine Protein 2+ (Negative) H 01/29/24 19:38 Urine Glucose (UA) Negative (Negative) 01/29/24 19:38 Urine Ketones 2+ (Negative) H 01/29/24 19:38 Urine Blood Negative (Negative) 01/29/24 19:38 Urine Nitrite Negative (Negative) 01/29/24 19:38 Urine Bilirubin 1+ (Negative) H 01/29/24 19:38 Urine Urobilinogen Negative (Negative) 01/29/24 19:38 Ur Leukocyte Esterase 1+ (Negative) H 01/29/24 19:38 Urine WBC (Auto) 0-5 /hpf (0-5) 01/29/24 19:38 Urine RBC (Auto) >20 /hpf (0-2) H 01/29/24 19:38 U Hyaline Cast (Auto) 3-5 /lpf (0-2) H 01/29/24 19:38 U Epithel Cells (Auto) 6-10 /hpf (0-2) H 01/29/24 19:38 Urine Bacteria (Auto) None Seen (None Seen) 01/29/24 19:38 Calcium Oxalate Crystal Present (None Prsent) A 01/29/24 19:38 Fluid Neutrophils % 2 % 01/31/24 08:24 Fluid Lymphocytes % 43 % 01/31/24 08:24 Fluid [place] % 55 % 01/31/24 08:24 Fluid Slide Review 01/31/24 08:24 Fluid Comment 01/31/24 08:24 Pleural Fluid Source Left Lung 01/31/24 08:24 Pleural Color Red 01/31/24 08:24 Pleural Appearance Cloudy 01/31/24 08:24 Pleural pH 7.41 (7.3-7.4) H 01/31/24 08:24 Pleural WBC (Auto) 6178 /uL 01/31/24 08:24 Pleural RBC (Auto) 50334 /uL 01/31/24 08:24 Pleural Total Protein 4.7 gm/dl 01/31/24 08:24 Pleural LDH 304 U/L 07/09/24 08:24 Pleural Glucose 105 mg/dl 01/31/24 08:24 Pleural Amylase 16 U/L 01/31/24 08:24 Impressions Abdomen/Pelvis CT 01/29/24 19:36 Exam(s): CT ABDOMEN + PELVIS With Contrast IV Amt: OPTIRAY 320 120ML EXAM: CT Abdomen and Pelvis With Intravenous Contrast CLINICAL HISTORY: Right lower quadrant Pain. TECHNIQUE: Axial computed tomography images of the abdomen and pelvis with intravenous contrast. CTDI is 24.28 mGy and DLP is 662.76 mGy-cm. Automated exposure control was utilized for the study. A dose lowering technique was utilized adhering to the principles of ALARA. CONTRAST: Patient received OPTIRAY 320 120ML of IV contrast COMPARISON: No relevant prior studies available. FINDINGS: Lung bases: See below. Pleural space: Moderate right and small left pleural effusions with adjacent atelectasis. ABDOMEN: Liver: Unremarkable. No mass. Gallbladder and bile ducts: Unremarkable. No calcified stones. No ductal dilation. Pancreas: Unremarkable. No mass. No ductal dilation. Spleen: Unremarkable. No splenomegaly. Adrenals: Unremarkable. No mass. Kidneys and ureters: Unremarkable. No solid mass. No hydronephrosis. Stomach and bowel: Unremarkable. No obstruction. No mucosal thickening. PELVIS: Appendix: No findings to suggest acute appendicitis. Bladder: Unremarkable. No mass. Reproductive: There is a heterogeneous 21.9 x 16.6 x 18.3 cm mass in the lower abdomen that appears to extend from the uterus. ABDOMEN and PELVIS: Intraperitoneal space: Mild free fluid in the abdomen and pelvis. Nodularity of the omentum is concerning for metastatic disease. No free air. Bones/joints: There are degenerative changes of the spine. No acute fracture. No dislocation. Soft tissues: Unremarkable. Vasculature: Unremarkable. No abdominal aortic aneurysm. Lymph nodes: Unremarkable. No enlarged lymph nodes. IMPRESSION: 1. There is a heterogeneous 21.9 x 16.6 x 18.3 cm mass in the lower abdomen that appears to extend from the uterus. This is consistent with malignancy. 2. Mild free fluid in the abdomen and pelvis. 3. Nodularity of the omentum is concerning for metastatic disease. Electronically signed by: Karissa Yuen MD 01/29/24 23:16 PM Chest CTA 01/29/24 20:31 Exam(s): CTA CHEST IV Amt: OPTIRAY 320 120ML EXAM: CT Angiography Chest With Intravenous Contrast CLINICAL HISTORY: Pulmonary embolus. TECHNIQUE: Axial computed tomographic angiography images of the chest with intravenous contrast. MIPS images were created and reviewed. CTDI is 24. 4 mGy and DLP is 1190.55 mGy-cm. Automated exposure control was utilized for the study. A dose lowering technique was utilized adhering to the principles of ALARA. MIP reconstructed images were created and reviewed. COMPARISON: No relevant prior studies available. FINDINGS: Pulmonary arteries: Unremarkable. No pulmonary embolus. Aorta: No acute findings. No thoracic aortic aneurysm. Lungs: Unremarkable. No mass. No consolidation. Pleural space: Large right and moderate left pleural effusions. No pneumothorax. Heart: Unremarkable. No cardiomegaly. No significant pericardial effusion. No evidence of RV dysfunction. Bones/joints: There are degenerative changes of the spine. No acute fracture. No dislocation. Soft tissues: Unremarkable. Lymph nodes: Unremarkable. No enlarged lymph nodes. IMPRESSION: 1. No pulmonary embolus. 2. Large right and moderate left pleural effusions. Electronically signed by: Karissa Yuen MD 01/29/24 23:17 PM Chest X-Ray 02/01/24 07:02 XR chest 1V portable HISTORY: Right pleural effusion status post thoracentesis. Follow-up. COMPARISON: Chest 01/31/2024. FINDINGS: No pneumothorax. The heart is normal in size. There are low lung volumes. Small bilateral pleural effusions and bibasilar densities persist. There is a small linear density within the right midlung zone which favor subsegmental atelectasis. No acute fractures. No evidence for pulmonary edema. IMPRESSION: Small bilateral pleural effusions and bibasilar densities persist. ACT 112: Negative or not required by law. Electronically signed by: Sarwat James M.D. 02/01/2024 7:17 AM Hospital Course (1) Bilateral pleural effusion: Ms. 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 Patient endorses right sided abdominal pain, unintentional weightloss, SOB and orthopnea. As per prior provider Spoke with Dr. Vasu Chairez over phone who recommends attempted transfer to tertiary care center. Spoke to [facility] Staffing Director Onc who states he will not accept as transfer as "primary is not concerned" Dr Henriquez recommended CA 19-9, CEA tumor markers. Dr. Henriquez also mentioned that given the size and concern for carcinomatosis, he would likely defer to Med Onc regardless. Discussed with IR this am regarding biopsy of tissue: "this is something that IR typically will not biopsy and os handled by JOINTER OPERATOR surgery..." Bilateral pleural effusions, exudative Abdominal mass c/f ovarian cancer with carcinomatosis --CT ABP with heterogeneous 21 x 16 x 18 cm mass in the lower abdomen , appears to extend from uterus. Nodularity of the omentum concerning for metastatic disease on the CT scan --CXR:[place] pleural effusions with progressive right basilar consolidation. No pneumothorax identified. --ECHO: Left ventricle is normal in size. Normal left ventricular wall thickness. Left ventricle wall motion is normal. EF 65 to 70%. No valvular disease. No pericardial effusion --S/P diagnostic/therapeutic ultrasound-guided thoracentesis -- Pleural fluid cytology pending --- Appreciate pulmonology, BICYCLE I ASSEMBLER input --Appreciate oncology input --S/P intra-abdominal biopsy on 02/02/[address] Bernal. Pathology pending Discussed with surgery today: Okay to discharge from surgical standpoint Plan to discharge home today Microcytic anemia Leukocytosis Thrombocytosis Iron deficiency B12 and folate normal, low retic Continue oral iron supplements Hypokalemia Resolved Monitor Sinus tachycardia CTA chest no PE Iso pleural effusions and underlying malignant process ECHO reviwed CTM on tele Abnormal urinalysis UTI ruled out Rocephin discontinued Asymptomatic DVT Px: SCDs for now Code Status Full Code Total Time Total Time Spent Total Time Spent (In Minutes): 55 minutes Discharge Plan Discharge Items Patient Disposition: Home - Self-Care Reason For Visit: PLEURAL EFFUSIONS, ABDOMINAL MASS Discharge Diagnosis: Bilateral pleural effusion Abdominal mass Iron deficiency anemia Activity: Per Instructions section Lifting: No more than 10 pounds Bathing Comment: you can shower tomorrow. No soaking in pools or baths for 2 weeks Exercise/Sports: Wait until after follow-up appointment Non-emergency contact: Primary Care Provider and Oncologist Call non-emergency contact if: you have any medication questions, your symptoms worsen, your temperature is above 101.5, your wound has increased redness, your wound has increased drainage and your wound pain has increased Follow-up/Referrals: Heath Bernal, [Surgeon] - (call office for a follow up in 2 weeks ) [facility] [Physician] - Nesha Snyder CRNP [Nurse Practitioner] - 02/17/24 3:40 pm Aime Nino MD [Physician] - PCP,NO [Primary Care Provider] - Diet: Regular Addtl Attending Provider Instructions: You have surgical glue called dermabond on your surgical site incisions. You may shower with this on. This will tend to come off within a couple of weeks. Do not pick at it. Addtl Health Sciences Program Coordinator Provider Instructions: Follow-up with your primary care physician in 1 week Follow-up with your oncologist Dr. Aime Nino as recommended Follow-up with your entomology professor as needed -- Your pleural fluid studies, intra-abdominal mass pathology results are pending at the time of discharge. Follow-up with your oncologist/primary care physician for results and further management Seek immediate medical attention if your symptoms reoccur or worsen Please take all medications as instructed on discharge list below. Please call if you have any questions or problems. You can reach a [facility] hospitalist on duty at [facility] 24 hours a day by calling [phone] Pending Studies at Discharge: Yes (Thoracentesis studies; UA cultures ) Stand-Alone Forms: My [facility], Smoking Cessation Medications and DC Order Prescriptions: New oxycodone-acetaminophen 5-325 mg tablet 1 - 2 tab PO .[id number] MDD Max 6 tabs per day PRN (Reason: pain) Qty: 15 0RF ferrous sulfate 325 mg (65 mg iron) tablet 325 mg PO BID Qty: 60 0RF Continued ascorbic acid (vitamin C) [Vitamin C] 1,000 mg Tablet 1 g PO DAILY cholecalciferol (vitamin D3) [Vitamin D3] 25 mcg (1,000 unit) Tablet 25 mcg PO DAILY omega 7-mjr-ijs-fish oil [Fish Oil] 1,000 mg (120 mg-180 mg) Capsule 1 cap PO DAILY echinacea 125 mg Tablet 0 mg PO DAILY Rx Instructions: administer with meals UNKNOWN STRENGTH elderberry fruit 350 mg Capsule 0 mg PO DAILY Rx Instructions: UNKNOWN STRENGTH Discharge Orders: Discharge Order (Routine); Ordered 02/02/24 Ordered By: Chidi Keen Admission Data Admit Date/Time: 01/30/24 01:02 Attending Provider: Chidi Keen Admit Provider: Rayshawn Lewis Primary Care Provider: PCP,NO Other Providers: Rayshawn Lewis; Luis Laird; Frances Almaraz; Era Michele; Je Cano; Nik Mcmillan; Vasu Chairez; Diego Lopez; Amrita Colón; Lesley Noble; Carolyn Bowman; Alma Reynolds; Sharda bIarra; Cheyenne Fisher; Earlene Silva; Rupert Kaur; Marce Stewart; Markus Patricia; Amelia Jarvis; Heath Bernal
--- NOTE | 2024-02-02 18:15 | Operative Report ---
PG Post Operative Report Pre & Post Diagnosis Operation Date: 02/02/24 15:35 Pre-Op Diagnosis: PLEURAL EFFUSIONS, ABDOMINAL MASS Post-Op Diagnosis: PLEURAL EFFUSIONS, ABDOMINAL MASS I identified the patient and participated in the time-out.: Yes Procedure Operation Date: 02/02/24 15:35 Actual Procedures p Diagnostic Laparoscopy,; pelvic washings; abdominal mass Biopsy(Not Applicable) - Heath Bernal DO Surgeon Heath Bernal DO Trapper Animal chris Lo Estimated Blood Loss 5 Findings Consistent with Post-Op Diagnosis Specimens 1. peritoneal washings 2. abdominal mass bx Description of Procedure After informed consent was obtained the patient was taken to the operating room and placed in supine position. After successful intubation the abdomen was sterilely prepped and draped in usual fashion. A supraumbilical incision was made with an 11 blade scalpel and carried down through the soft tissue using cautery. Anterior fascia was opened using cautery and two #0 Vicryl stay sutures were placed. Peritoneum was elevated with hemostats and incised under direct vision using a Metzenbaum scissor. A finger sweep was performed. A 12 mm Navarro trocar was placed and the abdomen was insufflated to 18 mmHg. Laparoscope was inserted and the abdomen examined in 360 degrees. We readily noted a large amount of abnormal nodular caking primarily in the lower abdomen. This is consistent with a metastatic malignancy. There was some fluid in the pelvis as well as in the right upper quadrant. There was minimal tumor burden in the upper abdomen. I placed a left mid abdominal 12 mm trocar in the left lower quadrant 5 mm trocar. I began by obtaining some peritoneal washings. We suctioned and irrigated fluid out of the right upper quadrant as well as the pelvis and sent this for cytology. The mass involved omentum peritoneum but also a large amount of small bowel mesentery. The pelvic organs were difficult to identify secondary to tumor burden. I was unable to run the small bowel secondary to encasement. I was able to use a smooth grasper to pull abnormal tissue off the peritoneum and omentum and small bowel mesentery. This was sent to pathology. There was adequate hemostasis at the end of the case. The trocars were all removed and the abdomen desufflated. The fascia the camera port was closed using 0 Vicryl in a [id number] fashion. All the wounds were irrigated and closed using 4-0 Monocryl. Marcaine with epinephrine was injected around them for postoperative analgesia skin glue used as a dressing. My nurse practitioner was present the entire case was instrumental with assisting in all aspects including exposure running the camera wound closure and dressing placement. I attest to the content of the Intraoperative Record and any orders documented therein. Any exceptions are noted below.
[2024-02-02] MEDS ORDERED: ACETAMINOPHEN 325 MG TAB PO PRN (18:28)
[2024-02-02] MEDS ORDERED: oxyCODONE HCL IR 5 MG TAB (IMMEDIATE RELEASE) PO PRN ×2 (18:28)
[2024-02-02] MEDS: ceFAZolin 2,000 MG/15 ML IV PUSH IV ONE (18:50)
--- NOTE | 2024-02-02 21:54 | Anesthesiology Progress Note ---
Date of Service February 02, 2024 Anesthesia Post Procedure Vital Signs Vital Signs: Temp Pulse Pulse Pulse Resp BP BP 02/02/24 19:15 36.5 C 106 H 20 101/69 02/02/24 18:36 36.7 C 106 H 16 98/65 L 02/02/24 18:15 37.2 C 104 H 18 101/69 02/02/24 18:00 36.9 C 102 H 23 99/58 L 02/02/24 17:50 101 H 23 113/57 L 02/02/24 17:40 96 H 22 105/67 02/02/24 17:30 99 H 20 99/66 L 02/02/24 17:23 36.6 C 93 H 16 140/85 02/02/24 13:39 37 C 120 H 18 127/75 02/02/24 11:09 36.8 C 110 H 18 116/70 02/02/24 08:00 02/02/24 08:00 99 H 02/02/24 07:28 36.7 C 108 H 18 115/85 02/02/24 03:31 36.6 C 104 H 16 107/76 02/02/24 00:00 112 H 02/01/24 22:32 36.7 C 103 H 18 110/74 Pulse Ox O2 Del Method O2 Flow Rate 02/02/24 19:15 97 Nasal Cannula 02/02/24 18:36 97 Nasal Cannula 2.0 02/02/24 18:15 97 Nasal Cannula 2.0 02/02/24 18:00 97 Nasal Cannula 2 02/02/24 17:50 97 Nasal Cannula 2 02/02/24 17:40 94 Nasal Cannula 2 02/02/24 17:30 99 Oxymask 4 02/02/24 17:23 99 Oxymask 6 02/02/24 13:39 98 Room Air 02/02/24 11:09 96 Room Air 02/02/24 08:00 Room Air 02/02/24 08:00 02/02/24 07:28 96 Room Air 02/02/24 03:31 95 Room Air 02/02/24 00:00 02/01/24 22:32 95 Room Air Transfer of Care Handoff Completed per policy Notes Mental Status: alert / awake / arousable Patient Amnestic to Procedure: Yes Nausea / Vomiting: adequately controlled Pain: adequately controlled Airway Patency, RR, SpO2: stable & adequate BP & HR: stable & adequate Hydration State: stable & adequate Anesthetic Complications: no major complications apparent and Pt Satisfied with anesthetic care
[2024-02-03 06:27] LABS: Basophils # (auto) 0.01 K/uL (0.00-0.20); Basophils % (auto) 0.1 %; Hematocrit (blood only) 27.7 % (37.0-47.0); Hemoglobin 8.7 g/dl (12.0-16.0); Immature Granulocytes # (auto) 0.05 K/uL (0.01-0.20); Immature Granulocytes % (auto) 0.5 %; Lymphocytes # (auto) 0.66 K/uL (1.20-3.40); Lymphocytes % (auto) 6.6 %; Mean Corpuscular Hemoglobin 21.6 pg (25.0-34.0); Mean Corpuscular Hgb Conc 31.4 g/dL (32.0-36.0); Mean Corpuscular Volume 68.9 fL (80.0-100.0); Monocytes # (auto) 0.88 K/uL (0.11-0.59); Monocytes % (auto) 8.8 %; Neutrophils # (auto) 8.39 K/uL (1.40-6.50); RDW Coefficient of Variation 15.2 % (11.5-14.5); RDW Standard Deviation 37.8 fL (36.4-46.3); Red Blood Count 4.02 M/uL (4.20-5.40); White Blood Count 9.99 K/ul (4.8-10.8)
[2024-02-03 06:34] LABS: Mean Platelet Volume 9.3 fL (9.4-12.4); Platelet Count 490 K/uL (130-400)
[2024-02-03 06:52] LABS: BUN Creatinine Ratio 17.4 (10-20); Calcium 8.7 mg/dl (8.6-10.3); Creatinine Clr Calc Pharmacy 117.9 ml/min; Est GFR (African American) 127.1 ml/min; Est GFR (Non-African American) 109.7 ml/min; Potassium 4.6 mmol/L (3.5-5.1)
[2024-02-03 07:10] LABS: Hypochromasia Present; Poikilocytosis Present; Polychromasia 1+
--- NOTE | 2024-02-03 08:42 | Pulmonology Progress Note ---
Date of Service February 03, 2024 Assessment & Plan (1) Bilateral pleural effusion: (2) Shortness of breath: Plan CTA chest 01/29/2024 personally reviewed: Bilateral pleural effusions, large on the right, moderate on the left Compressive atelectasis of the right lower lobe Atelectasis of the right middle lobe No significant mediastinal lymphadenopathy --Bilateral pleural effusion R>L BNP 18 Procalcitonin 8.63 Given abdominal mass, the probability of pleural effusion coming from ovarian source of malignancy is high S/p right-sided thoracentesis 01/30/2024, 1800 mL serosanguineous fluid removed, exudative as per lights criteria, cytology negative on the right side Pleural fluid: LDH 387, protein 5.1, pH 7.44 Serum: LDH 368, protein 6.5 S/p left-sided thoracentesis 01/31/2024, 600 mL serosanguineous fluid removed, exudative by lights criteria, cytology negative for malignancy Plan: Probability of getting the fluid back is high. Cytology is negative on the Pleural fluid both sides. Continue with incentive spirometry If the patient develops Shortness of breath and reaccumulation of fluid on the right side and repeat thoracentesis No further recommendation from pulmonary perspective, will sign off Please call directly with any questions Please note the above document was generated using voice recognition software. It may contain grammatical, syntax or spelling errors.Any formal questions or concerns about the content, text or information contained within the body of this dictation should be directly addressed to the provider for clarification. Admission and Anticipated Discharge Date Admission Date: January 30, 2024 Subjective Patient seen and examined at bedside. No acute distress, no adverse events overnight No headache, no nausea, no vomiting was in the room at the time of examination Denied any cough Shortness of breath is improved. No chest pain Review of Systems 2 Review of Systems: All systems reviewed & are unremarkable except as noted in Subjective Physical Exam 2 Physical Exam: Constitutional: No acute distress HEENT: EOMI, PERRLA Respiratory system: Decreased air entry on the right side, no wheeze, no rhonchi, mild crackles bilateral lower lobes CVS: S1-S2 positive, no murmurs or gallops Abdomen: Soft, nontender, nondistended, positive bowel sounds x4 Extremities: +2 pulses bilaterally radialis/ dorsalis pedis, no cyanosis, no edema Neuro: Awake alert oriented x3 Psych: Normal mood and affect G/U: No [place] Skin: no rashes, warm and dry Lymphatic: no cervical or axillary lymphadenopathy Results & Data Results & Data Vital Signs (Past 12 Hours) Vital Signs Temp Pulse Pulse Resp BP Pulse Ox O2 Del Method 02/03/24 07:50 36.6 C 96 H 18 115/75 94 Room Air 02/03/24 07:00 87 02/03/24 02:21 36.6 C 104 H 16 109/65 96 Room Air 02/03/24 00:00 99 H 02/02/24 22:46 36.6 C 104 H 20 112/73 91 Room Air Laboratory Results 02/03/24 05:51 02/03/24 05:51 PG Care Time/CCT Total # of Minutes Spent Total Time Spent with Patient: Total time spent is greater than 50% in coordination of care (as documented) at patient's floor/unit and/or counseling patient: Coding Level of Care Code 36180 SUB INP/OBS CARE 125MIN Diagnoses Bilateral pleural effusion J90 Shortness of breath R06.02
--- NOTE | 2024-02-03 09:28 | Surgery Progress Note ---
Date of Service February 03, 2024 Assessment & Plan (1) Status post laparoscopic surgery: Plan: doing well pod 1 ok for d/c f/u with me next week. Admission and Anticipated Discharge Date Admission Date: January 30, 2024 Subjective pt seen. feeling well . oswaldo diet. minimal pain Physical Exam Physical Exam: alert. nad abd: soft. expected tenderness Results & Data Vital Signs (Past 12 Hours) Vital Signs Temp Pulse Pulse Resp BP Pulse Ox O2 Del Method 02/03/24 07:50 36.6 C 96 H 18 115/75 94 Room Air 02/03/24 07:00 87 02/03/24 02:21 36.6 C 104 H 16 109/65 96 Room Air 02/03/24 00:00 99 H 02/02/24 22:46 36.6 C 104 H 20 112/73 91 Room Air PG Care Time/CCT Total # of Minutes Spent Total Time Spent with Patient: Total time spent is greater than 50% in coordination of care (as documented) at patient's floor/unit and/or counseling patient: Coding Level of Care Code 40236 Post Operative Follow-Up Diagnoses Status post laparoscopic surgery Z98.890
--- NOTE | 2024-02-03 09:47 | Hospitalist Progress Note ---
Date of Service February 03, 2024 Assessment & Plan (1) Bilateral pleural effusion: Plan: Ms. 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 Patient endorses right sided abdominal pain, unintentional weightloss, SOB and orthopnea. As per prior provider Spoke with Dr. Vasu Chairez over phone who recommends attempted transfer to tertiary care center. Spoke to [facility] [place] [facility] who states he will not accept as transfer as "primary is not concerned" Dr Henriquez recommended CA 19-9, CEA tumor markers. Dr. Henriquez also mentioned that given the size and concern for carcinomatosis, he would likely defer to Med Onc regardless. Discussed with IR this am regarding biopsy of tissue: "this is something that IR typically will not biopsy and os handled by [facility] surgery..." Bilateral pleural effusions, exudative Abdominal mass c/f ovarian cancer with carcinomatosis --CT ABP with heterogeneous 21 x 16 x 18 cm mass in the lower abdomen , appears to extend from uterus. Nodularity of the omentum concerning for metastatic disease on the CT scan --CXR:Layering pleural effusions with progressive right basilar consolidation. No pneumothorax identified. --ECHO: Left ventricle is normal in size. Normal left ventricular wall thickness. Left ventricle wall motion is normal. EF 65 to 70%. No valvular disease. No pericardial effusion --S/P diagnostic/therapeutic ultrasound-guided thoracentesis -- Pleural fluid cytology pending --- Appreciate pulmonology, [employer] input --Appreciate oncology input --S/P intra-abdominal biopsy on 02/02/[address] Bernla. Pathology pending Plan to discharge home today Advised to follow-up with oncology, surgery as outpatient Microcytic anemia Leukocytosis Thrombocytosis Iron deficiency B12 and folate normal, low retic Continue oral iron supplements Hypokalemia Resolved Monitor Sinus tachycardia CTA chest no PE Iso pleural effusions and underlying malignant process ECHO reviwed CTM on tele Abnormal urinalysis UTI ruled out Rocephin discontinued Asymptomatic DVT Px: SCDs for now Code Status Full Code Disposition Home Admission and Anticipated Discharge Date Admission Date: January 30, 2024 Subjective Patient is seen and examined at bedside Denies any significant abdominal pain today Family at bedside Offers no other complaints Denies any chest pain, dyspnea, nausea, vomiting Plan to discharge home today Review of Systems Review of Systems: All systems reviewed & are unremarkable except as noted in Subjective Physical Exam Physical Exam: Physical Exam: Vitals signs as noted above General Appearance:Moderately built and nourished, no apparent distress Head: normocephalic, Atraumatic Eyes: normal inspection, EOMI Neck: supple, Trachea midline Respiratory/Chest: Normal breath sounds, CTA, No accessory muscle use Cardiovascular: S1, S2, No murmur Abdomen/GI:Soft, Non tender, mildly distended, + laparoscopic surgical scars, bowel sounds present Extremities/Musculoskeletal:normal inspection, no edema Neurologic/Psych:AAOX3, grossly no focal neurological deficits Skin: normal color, warm Results & Data Results & Data Vital Signs (Past 12 Hours) Vital Signs Temp Pulse Pulse Resp BP Pulse Ox O2 Del Method 02/03/24 07:50 36.6 C 96 H 18 115/75 94 Room Air 02/03/24 07:00 87 02/03/24 02:21 36.6 C 104 H 16 109/65 96 Room Air 02/03/24 00:00 99 H 02/02/24 22:46 36.6 C 104 H 20 112/73 91 Room Air Laboratory Results Short CBC 02/03/24 Range/Units 05:51 WBC 9.99 (4.8-10.8) K/ul Hgb 8.7 L (12.0-16.0) g/dl Hct 27.7 L (37.0-47.0) % Plt Count 490 H (130-400) K/uL BMP 02/03/24 05:51 Sodium 137 Potassium 4.6 D Chloride 102 Carbon Dioxide 28 BUN 8 Creatinine 0.46 L Glucose 123 H Calcium 8.7
--- NOTE | 2024-02-06 16:28 | Coding Query ---
CODING QUERY To promote full compliance with coding requirements relating to patient care, provider participation is requested in all cases of insurance coder uncertainty. Please assist us with the question(s) below: Coding Question(s): Pt adm with bilateral pleural effusions & abdominal fullness. Diagnostic Lap done with peritoneal/omental bx and peritonea diagnostic drainage. Right & Left thoracentesis also done during this admission. Pleural effusions positive for malignancy. Please document, if known or suspected, the primary cancer. Thanks for your help! Sravan Juárez [facility] Physician's Response(s): Carcinoma of Gynecologic origin Principal Diagnosis: "that condition established after study, to be chiefly responsible for occasioning the admission of the patient to the hospital for care." Co-Existing Principal Diagnosis: "when two or more diagnoses equally meet the criteria for principal diagnosis as determined by the circumstances of admission, diagnostic work up, and/or therapy provided, and the Alphabetic Index, Tabular List, or another coding guideline does not provide sequencing direction, any one of the diagnoses may be sequenced first." "When the physician has documented what appears to be a current diagnosis in the body of the record, but has not included the diagnosis in the final diagnostic statement, the physician should be asked whether the diagnosis should be added." (Source Coding [facility] 2 QTR90. p3-4) JENNIFER
== END 2024-02-03 11:40 | disposition home or self-care (01) | DRG 749 ==
LOC: ED 19:18 → EDINP 01-30 01:02 → SUATTDRO 01-30 01:02 → EDINP 01-30 02:05 → 4W 01-30 12:42